=== PATIENT | female | born 1970 | race Caucasian/White ===

== ENCOUNTER 2017-12-27 11:34 | Inpatient (IN) | payer MEDICARE, MEDICAID ==
[~2017-12-27] VITALS: Ht 5943993 cm; Wt 63.6 kg
[2017-12-27 12:28] LABS: BASOPHILS % (AUTO) 0.8 % (0-1); EOSINOPHILS # (AUTO) 0.1 X10'3 (0-0.9); EOSINOPHILS % (AUTO) 1.8 % (0-6); HEMATOCRIT 44.6 % (35.0-45.0); HEMOGLOBIN 15.6 g/dl (12.0-16.0); LYMPHOCYTES # (AUTO) 1.5 X10'3 (1.1-4.8); LYMPHOCYTES % (AUTO) 30.9 % (21-51); MEAN CORPUSCULAR HEMOGLOBIN 32.1 PG (27.0-31.0); MEAN CORPUSCULAR VOLUME 91.8 FL (78-98); MEAN PLATELET VOLUME 8.1 FL (7.4-10.4); MONOCYTES # (AUTO) 0.3 X10'3 (0-0.9); MONOCYTES % (AUTO) 5.7 % (2-12); NEUTROPHILS % (AUTO) 60.8 % (42-75); PLATELET COUNT 88 X10'3 (140-440); RED BLOOD COUNT 4.85 X10'6 (4.20-5.60); RED CELL DISTRIBUTION WIDTH 12.6 % (11.5-14.5)
[2017-12-27 12:51] LABS: ALANINE AMINOTRANSFERASE 35 U/L (12-78); ALBUMIN 4.6 G/DL (3.4-5.0); ALBUMIN/GLOBULIN RATIO 1.3 (1.1-1.5); ALKALINE PHOSPHATASE 89 IU/L (46-116); ANION GAP 10 (8-16); ASPARTATE AMINO TRANSFERASE 32 U/L (10-37); BILIRUBIN,TOTAL 0.7 MG/DL (0.1-1.0); BLOOD UREA NITROGEN 8 MG/DL (7-18); BUN/CREATININE RATIO 8.3 (6.6-38.0); CALCIUM 9.1 MG/DL (8.5-10.1); CHLORIDE 102 MMOL/L (99-107); CREATININE 0.96 MG/DL (0.40-0.90); ETHANOL < 0.010 GM/DL (0.0-0.010); GLUCOSE 97 MG/DL (70-104); POTASSIUM 3.8 MMOL/L (3.5-5.1); SODIUM 140 MMOL/L (135-145); TOTAL CARBON DIOXIDE 27.7 MMOL/L (24-32); TOTAL PROTEIN 8.1 G/DL (6.4-8.2); eGFR 62 ML/MIN
[2017-12-27 13:33] LABS: LIPASE 1114 U/L (73-393)
[2017-12-27] MEDS ORDERED: TRAZ300T2 PO (13:52)
[2017-12-27] MEDS ORDERED: DESV100T4 PO (13:55)
[2017-12-27] MEDS ORDERED: MIRT7.5T11 PO (13:56)
[2017-12-27] MEDS ORDERED: ALPR-624 (13:57)
[2017-12-27] MEDS ORDERED: normal saline 1000ML IV soln IVB ONE (14:10)
[2017-12-27] MEDS ORDERED: ondansetron/PF 4mg/2ml inj IV ONE (14:10)
[2017-12-27 14:12] LABS: CLARITY,URINE Clear (Clear); COLOR,URINE Yellow (Yellow); GLUCOSE, URINE Negative (Neg); KETONES,URINE Trace mg/dl (Neg); LEUKOCYTE ESTERASE ,URINE Negative (Neg); NITRITES, URINE Negative (Neg); OCCULT BLOOD,URINE Negative (Neg); PH,URINE 5.5 (4.8-8.0); PROTEIN,URINE Negative (Neg); URINE HCG NEGATIVE (NEG); UROBILINOGEN,URINE 0.2 E.U/dL (0.2-1.0)
[2017-12-27 14:15] LABS: UA COLLECTION TYPE CLN CATCH MIDSTREAM
[2017-12-27 14:23] LABS: URINE AMPHETAMINE SCREEN NEGATIVE (Neg); URINE BARBITUATE SCREEN NEGATIVE (Neg); URINE BENZODIAZEPINES SCREEN POSITIVE (Neg); URINE CANNABINOID SCREEN POSITIVE (Neg); URINE COCAINE SCREEN NEGATIVE (Neg); URINE METHADONE SCREEN NEGATIVE (Neg); URINE OPIATE SCREEN NEGATIVE (Neg); URINE PHENCYCLIDINE SCREEN NEGATIVE (Neg)
[2017-12-27] MEDS ORDERED: mirtazapine 15mg tablet PO SCH (21:00)
[2017-12-27] MEDS ORDERED: traZODone 50mg tablet PO SCH (21:00)
[2017-12-27] MEDS: venlafaxine 25mg tablet PO SCH (21:27)
[2017-12-28 07:31] LABS: ALANINE AMINOTRANSFERASE 31 U/L (12-78); ALBUMIN/GLOBULIN RATIO 1.3 (1.1-1.5); ALKALINE PHOSPHATASE 76 IU/L (46-116); AMYLASE 95 U/L (25-115); ANION GAP 12 (8-16); ASPARTATE AMINO TRANSFERASE 26 U/L (10-37); BILIRUBIN,TOTAL 0.5 MG/DL (0.1-1.0); BLOOD UREA NITROGEN 9 MG/DL (7-18); BUN/CREATININE RATIO 10.1 (6.6-38.0); CALCIUM 8.7 MG/DL (8.5-10.1); CHLORIDE 106 MMOL/L (99-107); CREATININE 0.89 MG/DL (0.40-0.90); GLUCOSE 95 MG/DL (70-104); LIPASE 1195 U/L (73-393); MAGNESIUM 1.9 MG/DL (1.5-2.4); POTASSIUM 3.8 MMOL/L (3.5-5.1); SODIUM 143 MMOL/L (135-145); TOTAL CARBON DIOXIDE 25.1 MMOL/L (24-32); TOTAL PROTEIN 7.1 G/DL (6.4-8.2); eGFR 68 ML/MIN
[2017-12-28 07:43] LABS: ACETAMINOPHEN < 2.0 UG/ML (10-30)
[2017-12-28] MEDS ORDERED: HYDROcodone/acetaminophen 5mg/325mg tablet PO ONE (07:50)
[2017-12-28] MEDS: venlafaxine 25mg tablet PO SCH ×3 (09:12→20:10)
[2017-12-28] MEDS ORDERED: magnesium hydroxide 30ml (MOM) UD suspension PO PRN (11:30)
[2017-12-28] MEDS ORDERED: mag hydrox/Alum hydrox/simeth 30ml oral suspension PO PRN (11:30)
[2017-12-28] MEDS ORDERED: acetaminophen 325mg tablet PO PRN (11:30)
[2017-12-28] MEDS: potassium cl 20mEq in 1/2 NS 1,000 ML IV SCH ×2 (12:34→21:24)
[2017-12-28 15:36] LABS: TRIGLYCERIDES 105 MG/DL (20-135)
[2017-12-28] MEDS: mirtazapine 15mg tablet PO SCH (20:11)
[2017-12-28] MEDS: HYDROmorphone inj. 0.5 MG/0.5 ML DISP.SYRIN IV PRN (20:11)
[2017-12-28] MEDS ORDERED: non-formulary drug (Mirtazapine 1 TAB) PO SCH (21:00)
[2017-12-28] MEDS ORDERED: traZODone 150mg tablet PO SCH (21:00)
[2017-12-29] MEDS: ondansetron/PF 4mg/2ml inj IV PRN ×2 (05:32→17:08)
[2017-12-29] MEDS: potassium cl 20mEq in 1/2 NS 1,000 ML IV SCH ×2 (08:07→17:38)
[2017-12-29] MEDS: venlafaxine 25mg tablet PO SCH ×2 (08:27→13:14)
[2017-12-29] MEDS: HYDROmorphone inj. 0.5 MG/0.5 ML DISP.SYRIN IV PRN ×3 (09:05→19:31)
[2017-12-29] MEDS: mirtazapine 15mg tablet PO SCH (20:17)
[2017-12-29 23:09] VITALS: BP 92/64
== END 2017-12-29 23:30 | DRG 439 ==
LOC: ER 11:34 → ED HOLD 12-28 11:28
PROVIDERS: ADMIT Internal Medicine; ATTEND Internal Medicine
DX: K85.90 Acute pancreatitis without necrosis or infection, unspecified (principal); R45.851 Suicidal ideations; F31.30 Bipolar disorder, current episode depressed, mild or moderate severity, unspecified; F41.1 Generalized anxiety disorder; T43.215A Adverse effect of selective serotonin and norepinephrine reuptake inhibitors, initial encounter; T42.4X5A Adverse effect of benzodiazepines, initial encounter; Z90.49 Acquired absence of other specified parts of digestive tract; Z79.899 Other long term (current) drug therapy; Z98.51 Tubal ligation status; Z81.8 Family history of other mental and behavioral disorders; Y92.89 Other specified places as the place of occurrence of the external cause
CPT/HCPCS: 36415; 76700; 80053; 80305; 80320; 80329; 81003; 81025; 82150; 82607; 83690; 83735; 84443; 84478; 85025; 99285; J1170; J2405; J7030

== ENCOUNTER → 2017-12-28 09:09 | Inpatient (IN) | payer MEDICARE, MEDICAID ==
[~2017-12-28 09:09] MED LIST: ALPR-624; DESV100T4 PO; HYDR-3717 PO; LURA40TA3 PO; MIRT15TA8 PO; MIRT7.5T11 PO; TRAZ-143 PO; TRAZ300T2 PO; VENL225T3 PO
== END | disposition short-term general hospital (02) | DRG 881 ==
LOC: ADULT MH 09:09
PROVIDERS: ADMIT Psychiatry & Neurology Psychiatry; ATTEND Psychiatry & Neurology Psychiatry
DX: F32.9 Major depressive disorder, single episode, unspecified (principal)

== ENCOUNTER 2017-12-29 22:15 | Inpatient (IN) | payer MEDICARE, MEDICAID ==
[~2017-12-29] VITALS: Ht 152.4 cm; Wt 60.5 kg
[~2017-12-29 22:15] MED LIST changes: -HYDR-3717 PO; -LURA40TA3 PO; -MIRT15TA8 PO; -TRAZ-143 PO; -VENL225T3 PO
[2017-12-30 01:02] VITALS: BP 105/67
[2017-12-30] MEDS: acetaminophen 325mg tablet PO PRN ×2 (01:04→21:23)
[2017-12-30] MEDS: traZODone 50mg tablet PO PRN ×2 (01:04→21:23)
[2017-12-30] MEDS ORDERED: LORazepam 1 MG tablet PO PRN ×2 (04:40→18:10)
[2017-12-30 08:00] VITALS: BP 117/70
[2017-12-30 19:55] VITALS: BP 119/80
[2017-12-30] MEDS ORDERED: mirtazapine 15mg tablet PO SCH (21:00)
[2017-12-30] MEDS: mirtazapine 15mg tablet PO SCH (21:32)
[2017-12-31 08:00] VITALS: BP 104/67
[2017-12-31] MEDS ORDERED: non-formulary drug (invega 1.5 MG) PO SCH (08:00)
[2017-12-31] MEDS: venlafaxine XR 75mg capsule (Q24H) PO SCH (08:09)
[2017-12-31] MEDS: paliperidone 1.5mg ER tablet PO SCH (08:09)
[2017-12-31] MEDS ORDERED: LORazepam 1 MG tablet PO PRN (09:50)
[2017-12-31 19:55] VITALS: BP 123/82
[2017-12-31] MEDS: mirtazapine 15mg tablet PO SCH (22:14)
[2018-01-01 08:00] VITALS: BP 106/73
[2018-01-01] MEDS: venlafaxine XR 75mg capsule (Q24H) PO SCH (08:03)
[2018-01-01] MEDS: paliperidone 1.5mg ER tablet PO SCH (08:03)
[2018-01-01] MEDS ORDERED: non-formulary drug (invega 1.5 MG) PO ONE (08:15)
[2018-01-01] MEDS ORDERED: paliperidone 1.5mg ER tablet PO ONE (08:35)
[2018-01-01] MEDS: LORazepam 0.5 MG tablet PO PRN ×2 (12:31→20:28)
[2018-01-01 19:32] VITALS: BP 116/81
[2018-01-01] MEDS: mirtazapine 15mg tablet PO SCH (20:27)
[2018-01-02] MEDS: LORazepam 0.5 MG tablet PO PRN ×2 (07:09→16:57)
[2018-01-02 08:02] VITALS: BP 115/82
[2018-01-02] MEDS: PALIPERIDONE 3 MG TAB.ER.24 PO SCH (08:15)
[2018-01-02] MEDS: venlafaxine XR 75mg capsule (Q24H) PO SCH (08:15)
[2018-01-02] MEDS: hydrOXYzine 10 MG tablet PO PRN ×2 (12:02→20:15)
[2018-01-02 19:55] VITALS: BP 115/82
[2018-01-02] MEDS: mirtazapine 15mg tablet PO SCH (20:14)
[2018-01-03 08:09] VITALS: BP 107/73
[2018-01-03] MEDS: venlafaxine XR 75mg capsule (Q24H) PO SCH (08:23)
[2018-01-03] MEDS: PALIPERIDONE 3 MG TAB.ER.24 PO SCH (08:23)
[2018-01-03] MEDS: LORazepam 0.5 MG tablet PO PRN (16:26)
[2018-01-03 19:32] VITALS: BP 111/84
[2018-01-03] MEDS: traZODone 50mg tablet PO PRN (20:12)
[2018-01-03] MEDS: mirtazapine 15mg tablet PO SCH (20:12)
[2018-01-03] MEDS: acetaminophen 325mg tablet PO PRN (20:12)
[2018-01-03] MEDS: hydrOXYzine 10 MG tablet PO PRN (20:12)
[2018-01-04 07:55] VITALS: BP 109/76
[2018-01-04] MEDS: venlafaxine XR 75mg capsule (Q24H) PO SCH (09:43)
[2018-01-04] MEDS: LORazepam 0.5 MG tablet PO PRN (16:18)
[2018-01-04] MEDS ORDERED: lurasidone 20mg tablet PO SCH (18:00)
[2018-01-04] MEDS: acetaminophen 325mg tablet PO PRN (19:00)
[2018-01-04 19:17] VITALS: BP 117/79
[2018-01-04] MEDS: traZODone 50mg tablet PO PRN (20:24)
[2018-01-04] MEDS: mirtazapine 15mg tablet PO SCH (20:24)
[2018-01-04] MEDS: hydrOXYzine 10 MG tablet PO PRN (20:24)
[2018-01-05 07:50] VITALS: BP 106/72
[2018-01-05] MEDS ORDERED: venlafaxine XR 75mg capsule (Q24H) PO SCH (08:00)
[2018-01-05] MEDS: venlafaxine XR 75mg capsule (Q24H) PO SCH (09:04)
[2018-01-05] MEDS: LORazepam 0.5 MG tablet PO PRN ×2 (10:58→17:49)
[2018-01-05] MEDS ORDERED: magnesium hydroxide 30ml (MOM) UD suspension PO PRN (11:30)
[2018-01-05] MEDS: lurasidone 20mg tablet PO SCH (17:45)
[2018-01-05 19:31] VITALS: BP 93/64
[2018-01-05] MEDS: mirtazapine 15mg tablet PO SCH (21:17)
[2018-01-06 08:00] VITALS: BP 112/86
[2018-01-06] MEDS: venlafaxine XR 75mg capsule (Q24H) PO SCH (08:23)
[2018-01-06] MEDS: LORazepam 0.5 MG tablet PO PRN (12:00)
[2018-01-06] MEDS: lurasidone 20mg tablet PO SCH (17:35)
[2018-01-06] MEDS: mirtazapine 15mg tablet PO SCH (20:09)
[2018-01-06 20:32] VITALS: BP 118/76
[2018-01-07] MEDS: venlafaxine XR 75mg capsule (Q24H) PO SCH (07:04)
[2018-01-07 08:00] VITALS: BP 114/76
[2018-01-07] MEDS: LORazepam 0.5 MG tablet PO PRN (09:43)
[2018-01-07] MEDS ORDERED: TRAZ-143 PO (11:31)
[2018-01-07] MEDS ORDERED: VENL225T3 PO (11:31)
[2018-01-07] MEDS ORDERED: LURA40TA3 PO (11:31)
[2018-01-07] MEDS ORDERED: MIRT15TA8 PO (11:31)
[2018-01-07] MEDS ORDERED: HYDR-3717 PO (11:31)
== END 2018-01-07 13:25 | disposition home or self-care (01) | DRG 885 ==
LOC: ADULT MH 22:15
PROVIDERS: ADMIT Psychiatry & Neurology Psychiatry; ATTEND Psychiatry & Neurology Psychiatry
DX: F33.2 Major depressive disorder, recurrent severe without psychotic features (principal); R45.851 Suicidal ideations; F41.1 Generalized anxiety disorder; F43.10 Post-traumatic stress disorder, unspecified; F44.81 Dissociative identity disorder; F10.20 Alcohol dependence, uncomplicated; Z90.49 Acquired absence of other specified parts of digestive tract; Z98.51 Tubal ligation status; Z79.899 Other long term (current) drug therapy; Z81.1 Family history of alcohol abuse and dependence; Z81.8 Family history of other mental and behavioral disorders
CPT/HCPCS: 87070; 99406

== ENCOUNTER 2018-02-28 12:01 | Emergency (ER) | payer MEDICARE, MEDICAID ==
[~2018-02-28] VITALS: Ht 175.3 cm; Wt 63.6 kg
[~2018-02-28 12:01] MED LIST changes: -ALPR-624; -DESV100T4 PO; +HYDR-3717 PO; +LURA40TA3 PO; +MIRT15TA8 PO; -MIRT7.5T11 PO; +TRAZ-143 PO; -TRAZ300T2 PO; +VENL225T3 PO
[2018-02-28 12:07] VITALS: BP 134/92
[2018-02-28 13:19] LABS: CLARITY,URINE CLEAR (Clear); COLOR,URINE YELLOW (Yellow); GLUCOSE, URINE NEGATIVE (Neg); KETONES,URINE NEGATIVE (Neg); LEUKOCYTE ESTERASE ,URINE NEGATIVE (Neg); NITRITES, URINE NEGATIVE (Neg); OCCULT BLOOD,URINE NEGATIVE (Neg); PH,URINE 7.5 (4.8-8.0); PROTEIN,URINE NEGATIVE (Neg); UROBILINOGEN,URINE 0.2 E.U/dL (0.2-1.0)
[2018-02-28 13:20] LABS: URINE HCG NEGATIVE (NEG)
[2018-02-28 13:27] LABS: BASOPHILS % (AUTO) 0.5 % (0-1); EOSINOPHILS # (AUTO) 0.2 X10'3 (0-0.9); EOSINOPHILS % (AUTO) 2.5 % (0-6); HEMATOCRIT 42.5 % (35.0-45.0); HEMOGLOBIN 14.9 g/dl (12.0-16.0); LYMPHOCYTES # (AUTO) 1.7 X10'3 (1.1-4.8); LYMPHOCYTES % (AUTO) 24.9 % (21-51); MEAN CORPUSCULAR HEMOGLOBIN 32.1 PG (27.0-31.0); MEAN CORPUSCULAR HGB CONC 35.1 % (33.0-36.5); MEAN CORPUSCULAR VOLUME 91.3 FL (78-98); MONOCYTES # (AUTO) 0.5 X10'3 (0-0.9); MONOCYTES % (AUTO) 7.2 % (2-12); NEUTROPHILS # (AUTO) 4.3 X10'3 (1.8-7.7); NEUTROPHILS % (AUTO) 64.9 % (42-75); PLATELET COUNT 112 X10'3 (140-440); RED BLOOD COUNT 4.65 X10'6 (4.20-5.60); RED CELL DISTRIBUTION WIDTH 12.6 % (11.5-14.5); WHITE BLOOD COUNT 6.7 X10'3 (4.5-11.0)
[2018-02-28 13:27] LABS: UA COLLECTION TYPE CLN CATCH MIDSTREAM
[2018-02-28 13:31] LABS: URINE AMPHETAMINE SCREEN NEGATIVE (Neg); URINE BARBITUATE SCREEN NEGATIVE (Neg); URINE BENZODIAZEPINES SCREEN POSITIVE (Neg); URINE CANNABINOID SCREEN NEGATIVE (Neg); URINE COCAINE SCREEN NEGATIVE (Neg); URINE METHADONE SCREEN NEGATIVE (Neg); URINE OPIATE SCREEN NEGATIVE (Neg); URINE PHENCYCLIDINE SCREEN NEGATIVE (Neg)
[2018-02-28 13:57] LABS: ALANINE AMINOTRANSFERASE 64 U/L (12-78); ALBUMIN/GLOBULIN RATIO 1.1 (1.1-1.5); ALKALINE PHOSPHATASE 110 IU/L (46-116); ANION GAP 10 (8-16); ASPARTATE AMINO TRANSFERASE 47 U/L (10-37); BILIRUBIN,TOTAL 0.3 MG/DL (0.1-1.0); BLOOD UREA NITROGEN 10 MG/DL (7-18); BUN/CREATININE RATIO 9.6 (6.6-38.0); CHLORIDE 104 MMOL/L (99-107); CREATININE 1.04 MG/DL (0.40-0.90); ETHANOL < 0.010 GM/DL (0.0-0.010); GLUCOSE 105 MG/DL (70-104); POTASSIUM 3.9 MMOL/L (3.5-5.1); SODIUM 141 MMOL/L (135-145); TOTAL CARBON DIOXIDE 27.4 MMOL/L (24-32); TOTAL PROTEIN 7.6 G/DL (6.4-8.2); eGFR 57 ML/MIN
[2018-02-28 13:58] LABS: ACETAMINOPHEN < 2.0 UG/ML (10-30)
[2018-02-28] MEDS ORDERED: HYDR-3686 PO (14:33)
[2018-02-28] MEDS ORDERED: LURA40TA3 PO (14:40)
[2018-02-28] MEDS ORDERED: MIRT15TA8 PO (14:40)
[2018-02-28] MEDS ORDERED: VENL225T3 PO (14:43)
[2018-02-28] MEDS ORDERED: TRAZ-143 PO (14:43)
[2018-02-28] MEDS ORDERED: mirtazapine 15mg tablet PO PRN (15:05)
[2018-02-28] MEDS ORDERED: hydrOXYzine 25 MG tablet PO PRN (15:05)
[2018-02-28] MEDS ORDERED: traZODone 50mg tablet PO PRN (15:10)
[2018-02-28] MEDS ORDERED: HYDR-3717 PO (17:40)
[2018-02-28] MEDS ORDERED: lurasidone 20mg tablet PO SCH (21:00)
[2018-03-01] MEDS ORDERED: venlafaxine XR 75mg capsule (Q24H) PO SCH (08:00)
== END 2018-02-28 16:45 | disposition home or self-care (01) ==
LOC: ER 12:01
DX: R45.851 Suicidal ideations (principal); F41.9 Anxiety disorder, unspecified; F32.9 Major depressive disorder, single episode, unspecified; Z90.49 Acquired absence of other specified parts of digestive tract; Z56.0 Unemployment, unspecified; Z79.899 Other long term (current) drug therapy
CPT/HCPCS: 36415; 80053; 80305; 80320; 80329; 81003; 81025; 84443; 85025; 93005; 99285

== ENCOUNTER 2018-10-07 17:03 | Inpatient (IN) | payer MEDICARE, MEDICAID ==
[~2018-10-07] VITALS: Ht 165.1 cm; Wt 78.2 kg
[~2018-10-07 17:03] MED LIST changes: -LURA40TA3 PO; +LURA60TA2 PO; -TRAZ-143 PO; +TRAZ-218 PO; +VENL150T3 PO; -VENL225T3 PO
[2018-10-07] MEDS ORDERED: normal saline 1000ML IV soln IVB ONE (17:30)
[2018-10-07] MEDS ORDERED: morphine 4 MG/ML inj SYRINge IV ONE (17:30)
[2018-10-07] MEDS ORDERED: ondansetron/PF 4mg/2ml inj IV ONE (17:30)
[2018-10-07 17:48] LABS: ALANINE AMINOTRANSFERASE 70 U/L (12-78); ALBUMIN 4.3 G/DL (3.4-5.0); ALBUMIN/GLOBULIN RATIO 1.1 (1.1-1.5); ALKALINE PHOSPHATASE 127 IU/L (46-116); ANION GAP 12 (8-16); ASPARTATE AMINO TRANSFERASE 41 U/L (10-37); BILIRUBIN,TOTAL 0.3 MG/DL (0.1-1.0); BLOOD UREA NITROGEN 8 MG/DL (7-18); BUN/CREATININE RATIO 7.1 (6.6-38.0); CALCIUM 8.9 MG/DL (8.5-10.1); CHLORIDE 100 MMOL/L (99-107); CREATININE 1.13 MG/DL (0.40-0.90); GLUCOSE 105 MG/DL (70-104); LIPASE 1027 U/L (73-393); POTASSIUM 3.5 MMOL/L (3.5-5.1); SODIUM 137 MMOL/L (135-145); TOTAL CARBON DIOXIDE 25.1 MMOL/L (24-32); TOTAL PROTEIN 8.2 G/DL (6.4-8.2); eGFR 51 ML/MIN
[2018-10-07 17:52] LABS: CLARITY,URINE CLEAR (Clear); COLOR,URINE YELLOW (Yellow); GLUCOSE, URINE NEGATIVE (Neg); KETONES,URINE NEGATIVE (Neg); LEUKOCYTE ESTERASE ,URINE NEGATIVE (Neg); NITRITES, URINE NEGATIVE (Neg); OCCULT BLOOD,URINE NEGATIVE (Neg); PROTEIN,URINE NEGATIVE (Neg); UROBILINOGEN,URINE 0.2 E.U/dL (0.2-1.0)
[2018-10-07 17:53] LABS: UA COLLECTION TYPE CLN CATCH MIDSTREAM; URINE HCG NEGATIVE (NEG)
[2018-10-07 17:56] LABS: BASOPHILS % (AUTO) 0.3 % (0-1); EOSINOPHILS % (AUTO) 1.5 % (0-6); HEMATOCRIT 44.9 % (35.0-45.0); LYMPHOCYTES # (AUTO) 1.4 X10'3 (1.1-4.8); LYMPHOCYTES % (AUTO) 16.1 % (21-51); MEAN CORPUSCULAR HEMOGLOBIN 31.4 PG (27.0-31.0); MEAN CORPUSCULAR HGB CONC 33.5 % (33.0-36.5); MEAN CORPUSCULAR VOLUME 93.6 FL (78-98); MEAN PLATELET VOLUME 8.1 FL (7.4-10.4); MONOCYTES # (AUTO) 0.7 X10'3 (0-0.9); MONOCYTES % (AUTO) 8.4 % (2-12); NEUTROPHILS # (AUTO) 6.3 X10'3 (1.8-7.7); NEUTROPHILS % (AUTO) 73.7 % (42-75); PLATELET COUNT 101 X10'3 (140-440); RED BLOOD COUNT 4.79 X10'6 (4.20-5.60); RED CELL DISTRIBUTION WIDTH 12.6 % (11.5-14.5); WHITE BLOOD COUNT 8.6 X10'3 (4.5-11.0)
[2018-10-07 17:57] LABS: EOSINOPHILS # (AUTO) 0.1 X10'3 (0-0.9)
[2018-10-07] MEDS ORDERED: [UNRECOGNIZED DRUG - CODE] PO (18:47)
[2018-10-07] MEDS ORDERED: acetaminophen 325mg tablet PO PRN (19:30)
[2018-10-07] MEDS ORDERED: CADD PCA waste documentation MC PRN (19:30)
[2018-10-07] MEDS ORDERED: ondansetron/PF 4mg/2ml inj IV PRN (19:30)
[2018-10-07] MEDS ORDERED: naloxone 0.4 mg/ml inj IV PRN (19:30)
[2018-10-07 20:45] VITALS: BP 113/79
[2018-10-07] MEDS: normal saline 1000ml 1,000 ML IV SCH (20:53)
[2018-10-07] MEDS: morphine/NS 5 mg/ml CADD 50 ML IV SCH ×3 (21:00→23:00)
[2018-10-07] MEDS: traZODone 50mg tablet PO PRN (22:55)
[2018-10-07] MEDS: lurasidone 60mg tablet PO SCH (22:55)
[2018-10-07] MEDS: heparin, porcine 5000 units/ml vial SQ SCH (22:55)
[2018-10-07] MEDS: ALPRAZolam 0.5mg tablet PO SCH (22:56)
[2018-10-07] MEDS: mirtazapine 15mg tablet PO SCH (22:56)
[2018-10-07] MEDS: venlafaxine XR 75mg capsule (Q24H) PO SCH (22:57)
[2018-10-07 23:00] VITALS: BP 105/71
[2018-10-08] MEDS: morphine/NS 5 mg/ml CADD 50 ML IV SCH ×12 (00:42→23:00)
[2018-10-08] MEDS: normal saline 1000ml 1,000 ML IV SCH ×3 (04:24→23:45)
[2018-10-08 04:52] LABS: BASOPHILS % (AUTO) 0.7 % (0-1); EOSINOPHILS # (AUTO) 0.3 X10'3 (0-0.9); EOSINOPHILS % (AUTO) 3.8 % (0-6); HEMATOCRIT 39.3 % (35.0-45.0); HEMOGLOBIN 13.1 g/dl (12.0-16.0); LYMPHOCYTES # (AUTO) 2.6 X10'3 (1.1-4.8); LYMPHOCYTES % (AUTO) 37.1 % (21-51); MEAN CORPUSCULAR HEMOGLOBIN 31.2 PG (27.0-31.0); MEAN CORPUSCULAR HGB CONC 33.2 % (33.0-36.5); MEAN CORPUSCULAR VOLUME 93.8 FL (78-98); MEAN PLATELET VOLUME 7.8 FL (7.4-10.4); MONOCYTES # (AUTO) 0.6 X10'3 (0-0.9); MONOCYTES % (AUTO) 8.2 % (2-12); NEUTROPHILS # (AUTO) 3.5 X10'3 (1.8-7.7); NEUTROPHILS % (AUTO) 50.2 % (42-75); PLATELET COUNT 78 X10'3 (140-440); RED BLOOD COUNT 4.18 X10'6 (4.20-5.60); WHITE BLOOD COUNT 6.9 X10'3 (4.5-11.0)
[2018-10-08 05:12] LABS: ALANINE AMINOTRANSFERASE 56 U/L (12-78); ALBUMIN 3.2 G/DL (3.4-5.0); ALBUMIN/GLOBULIN RATIO 1.1 (1.1-1.5); ALKALINE PHOSPHATASE 100 IU/L (46-116); ANION GAP 8 (8-16); ASPARTATE AMINO TRANSFERASE 40 U/L (10-37); BILIRUBIN,TOTAL 0.5 MG/DL (0.1-1.0); BLOOD UREA NITROGEN 6 MG/DL (7-18); BUN/CREATININE RATIO 6.3 (6.6-38.0); CALCIUM 7.8 MG/DL (8.5-10.1); CHLORIDE 107 MMOL/L (99-107); CREATININE 0.95 MG/DL (0.40-0.90); GLUCOSE 88 MG/DL (70-104); POTASSIUM 3.8 MMOL/L (3.5-5.1); SODIUM 141 MMOL/L (135-145); TOTAL CARBON DIOXIDE 26.3 MMOL/L (24-32); TOTAL PROTEIN 6.1 G/DL (6.4-8.2); eGFR 63 ML/MIN
[2018-10-08 07:00] VITALS: BP 102/63
[2018-10-08] MEDS ORDERED: venlafaxine XR 75mg capsule (Q24H) PO SCH (08:00)
[2018-10-08] MEDS: heparin, porcine 5000 units/ml vial SQ SCH ×2 (08:00→21:41)
[2018-10-08] MEDS ORDERED: ALPRAZolam 0.5mg tablet PO SCH (08:00)
[2018-10-08 11:00] VITALS: BP 97/65
[2018-10-08] MEDS ORDERED: lurasidone 60mg tablet PO SCH (17:00)
[2018-10-08] MEDS: lurasidone 60mg tablet PO SCH (17:26)
[2018-10-08 20:00] VITALS: BP 109/74
[2018-10-08] MEDS: traZODone 50mg tablet PO PRN (21:40)
[2018-10-08] MEDS: venlafaxine XR 75mg capsule (Q24H) PO SCH (21:40)
[2018-10-08] MEDS: mirtazapine 15mg tablet PO SCH (21:40)
[2018-10-08] MEDS: ALPRAZolam 0.5mg tablet PO SCH (21:40)
[2018-10-09] VITALS: BP 88/54
[2018-10-09] MEDS: morphine/NS 5 mg/ml CADD 50 ML IV SCH ×3 (01:00→05:00)
[2018-10-09 05:27] LABS: BASOPHILS % (AUTO) 0.8 % (0-1); EOSINOPHILS # (AUTO) 0.2 X10'3 (0-0.9); EOSINOPHILS % (AUTO) 4.4 % (0-6); HEMATOCRIT 36.9 % (35.0-45.0); HEMOGLOBIN 12.6 g/dl (12.0-16.0); LYMPHOCYTES # (AUTO) 1.8 X10'3 (1.1-4.8); LYMPHOCYTES % (AUTO) 41.3 % (21-51); MEAN CORPUSCULAR HEMOGLOBIN 31.7 PG (27.0-31.0); MEAN CORPUSCULAR HGB CONC 34.1 % (33.0-36.5); MEAN CORPUSCULAR VOLUME 93.2 FL (78-98); MEAN PLATELET VOLUME 7.8 FL (7.4-10.4); MONOCYTES # (AUTO) 0.5 X10'3 (0-0.9); MONOCYTES % (AUTO) 11.4 % (2-12); NEUTROPHILS # (AUTO) 1.8 X10'3 (1.8-7.7); NEUTROPHILS % (AUTO) 42.1 % (42-75); PLATELET COUNT 65 X10'3 (140-440); RED BLOOD COUNT 3.96 X10'6 (4.20-5.60); RED CELL DISTRIBUTION WIDTH 12.6 % (11.5-14.5); WHITE BLOOD COUNT 4.3 X10'3 (4.5-11.0)
[2018-10-09 05:48] LABS: ALANINE AMINOTRANSFERASE 66 U/L (12-78); ALBUMIN 3.1 G/DL (3.4-5.0); ALBUMIN/GLOBULIN RATIO 1.1 (1.1-1.5); ALKALINE PHOSPHATASE 108 IU/L (46-116); ANION GAP 7 (8-16); ASPARTATE AMINO TRANSFERASE 57 U/L (10-37); BILIRUBIN,TOTAL 0.5 MG/DL (0.1-1.0); BLOOD UREA NITROGEN 4 MG/DL (7-18); BUN/CREATININE RATIO 4.2 (6.6-38.0); CALCIUM 8.2 MG/DL (8.5-10.1); CHLORIDE 107 MMOL/L (99-107); CREATININE 0.95 MG/DL (0.40-0.90); GLUCOSE 75 MG/DL (70-104); SODIUM 141 MMOL/L (135-145); TOTAL CARBON DIOXIDE 26.8 MMOL/L (24-32); TOTAL PROTEIN 5.9 G/DL (6.4-8.2); eGFR 63 ML/MIN
[2018-10-09] MEDS: heparin, porcine 5000 units/ml vial SQ SCH (06:59)
[2018-10-09 07:30] VITALS: BP 121/76
[2018-10-09] MEDS: normal saline 1000ml 1,000 ML IV SCH (08:58)
[2018-10-09] MEDS ORDERED: morphine 2 MG/ML inj. syringe IV PRN (09:35)
[2018-10-09] MEDS ORDERED: magnesium hydroxide 30ml (MOM) UD suspension PO PRN (09:35)
[2018-10-09] MEDS ORDERED: acetaminophen 325mg tablet PO PRN (09:35)
[2018-10-09] MEDS: HYDROcodone/acetaminophen 5mg/325mg tablet PO PRN ×2 (10:39→16:41)
[2018-10-09 11:02] VITALS: BP 120/79
== END 2018-10-09 16:55 | disposition home or self-care (01) | DRG 440 ==
LOC: ER 17:04 → ED HOLD 19:27 → SUR 3N 20:40 → CMPBEDREQ 21:18
PROVIDERS: ADMIT Internal Medicine; ATTEND Hospitalist
DX: K85.20 Alcohol induced acute pancreatitis without necrosis or infection (principal); F10.20 Alcohol dependence, uncomplicated; D69.6 Thrombocytopenia, unspecified; K86.0 Alcohol-induced chronic pancreatitis; F17.210 Nicotine dependence, cigarettes, uncomplicated; R74.8 Abnormal levels of other serum enzymes; F31.9 Bipolar disorder, unspecified; F41.9 Anxiety disorder, unspecified; Z90.49 Acquired absence of other specified parts of digestive tract; Z79.899 Other long term (current) drug therapy; Z81.8 Family history of other mental and behavioral disorders; Z82.49 Family history of ischemic heart disease and other diseases of the circulatory system; Z71.41 Alcohol abuse counseling and surveillance of alcoholic
CPT/HCPCS: 36415; 80053; 81003; 81025; 83690; 85025; 85610; 87070; 96361; 96374; 96375; 99285; G0378; J1644; J2270; J2405; J7030

== ENCOUNTER 2019-02-25 19:51 | Inpatient (IN) | payer MEDICARE, MEDICAID ==
[~2019-02-25] VITALS: Ht 165.1 cm; Wt 79.6 kg
[~2019-02-25 19:51] MED LIST changes: -HYDR-3717 PO; -TRAZ-218 PO; +TRAZ-251 PO; +[UNRECOGNIZED DRUG - CODE] PO; +lurasidone 20mg tablet PO SCH
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
[2019-02-25] MEDS ORDERED: magnesium hydroxide 30ml (MOM) UD suspension PO PRN (20:40)
[2019-02-25] MEDS ORDERED: mag hydrox/Alum hydrox/simeth 30ml oral suspension PO PRN (20:40)
[2019-02-25] MEDS ORDERED: acetaminophen 325mg tablet PO PRN ×2 (20:40)
[2019-02-25] MEDS ORDERED: loperamide 2mg capsule PO PRN (20:40)
[2019-02-25] MEDS ORDERED: lurasidone 20mg tablet PO SCH (21:00)
[2019-02-25] MEDS ORDERED: tuberculin, purif. prot. deriv. 5 units/0.1ml ID ONE (21:37)
[2019-02-25 21:45] VITALS: BP 126/97
[2019-02-25] MEDS ORDERED: TRAZ-251 PO (22:08)
[2019-02-25] MEDS ORDERED: LURA60TA2 PO (22:08)
[2019-02-25] MEDS ORDERED: ALPR1TAB2 PO (22:08)
[2019-02-25] MEDS ORDERED: MIRT15TA PO (22:08)
[2019-02-25] MEDS ORDERED: VENL150C2 PO (22:08)
[2019-02-25] MEDS ORDERED: ALPR-624 PO (22:08)
[2019-02-25 22:23] VITALS: BP 126/97
[2019-02-25] MEDS ORDERED: ALPRAZolam 0.5mg tablet PO PRN (23:00)
[2019-02-25] MEDS: ALPRAZolam 0.5mg tablet PO SCH (23:25)
[2019-02-25] MEDS: traZODone 50mg tablet PO SCH (23:25)
[2019-02-25] MEDS: mirtazapine 15mg tablet PO SCH (23:25)
[2019-02-26 07:13] LABS: CHOL/HDL RATIO 2.9 (0.00-4.99); CHOLESTEROL 201 MG/DL (0-200); HDL CHOLESTEROL 69 MG/DL (35-60); LDL CHOLESTEROL 114 MG/DL (50-100); TRIGLYCERIDES 138 MG/DL (20-135)
[2019-02-26 07:26] LABS: HEMOGLOBIN A1C 5.2 % (4.5-6.2)
[2019-02-26] MEDS: venlafaxine XR 75mg capsule (Q24H) PO SCH (08:04)
[2019-02-26 09:13] VITALS: BP 130/93
--- NOTE | 2019-02-26 15:57 | NUR ---
Nursing Progress Note: Legal hold: 5150 DTS Report received from nurse with use of SBAR: DELANEY Guerra Why are they here: The patient is a 48 year old female who self presented to [facility] ER from her home in [place]. She reported that she was suicidal with a plan to take an over dose of medications. She was seen by [facility] and placed on a 5150 for being a danger to herself. Assessment What has happened this shift: Patient is observed resting at change of shift. She awakens easily to take her morning medications. She joins others in the group room for breakfast and then returns to bed to sleep. She does not attend group. She is observed resting in her room and reading throughout the day. Her demeanor is calm and friendly. She states that she is feeling better today and currently denies S/I. She reports that she is just feeling very tired and thankful to be able to rest. S/I, H/I: none reported A/VH: none reported Sleep: 6hrs NOC, rested during the day ADL's: independent Group attendance: no Were meds taken: Yes Any med S/E: None reported, no IMs or tremors observed Mental Status Exam Appearance: appropriate Eye contact: Good Behavior: Cooperative and friendly Speech: Soft tone, normal rate and rhythm Mood: sad Affect: not expressive Thought process: linear Thought Content: just tired right now Cognition: A&O X4 Insight: Fair Judgment: Fair Interventions PRN's used: none Therapeutic interventions: 1:1 therapeutic assessment, maintained safe therapeutic milieu, encouraged independent ADLs, provided active listening with positive feedback, provided medication education as needed, monitored for change in behavior and needed intervention. Q 15 min safety checks. Restraints/seclusion/emergency medication: N/A Justification of Continued Inpatient Treatment: Continued therapeutic support and medication management needed to provide stabilization, and prevent decompensation decreasing risk to patient for readmittance to in-patient unit.
[2019-02-26] MEDS: lurasidone 20mg tablet PO SCH (17:56)
[2019-02-26 19:52] VITALS: BP 129/87
[2019-02-26] MEDS: traZODone 50mg tablet PO SCH (20:29)
[2019-02-26] MEDS: mirtazapine 15mg tablet PO SCH (20:29)
[2019-02-26] MEDS: ALPRAZolam 0.5mg tablet PO SCH (20:30)
--- NOTE | 2019-02-27 01:11 | NUR ---
Nursing Progress Note: Legal hold: 5150 DTS Report received from nurse with use of SBAR: DELANEY Ashby Why are they here: The patient is a 48 year old female who self presented to [facility] from her home in [place]. She reported that she was suicidal with a plan to take an over dose of medications. She was seen by [facility] and placed on a 5150 for being a danger to herself. Assessment What has happened this shift: Patient is observed in her bed reading at change of shift. She is cooperative for a 1:1 assessment. She denies SI stating "Not currently" when asked. She states her depression is a 6/10 and she feels better today after being on the unit than she has prior days. She denies HI, AH, VH. She is noted to keep to herself and spend her time in her room sleeping. She takes her HS medications without event. S/I, H/I: SI: "Not currently" Denies HI A/VH: Denies Sleep: Currently sleeping, see sleep assessment ADL's: Independent Group attendance: No Were meds taken: Yes Any med S/E: None reported Mental Status Exam Appearance: WNL, well groomed Eye contact: Good Behavior: Cooperative Speech: Soft tone, normal rate and rhythm Mood: Depressed Affect: Congruent to mood Thought process: Linear Thought Content: Getting better Cognition: A&O X4 Insight: Poor Judgment: Poor Interventions PRN's used: None Therapeutic interventions: 1:1 therapeutic assessment, maintained safe therapeutic milieu, encouraged independent ADLs, provided active listening with positive feedback, provided medication education as needed, monitored for change in behavior and needed intervention. Q 15 min safety checks. Restraints/seclusion/emergency medication: N/A Justification of Continued Inpatient Treatment: Continued therapeutic support and medication management needed to provide stabilization, and prevent decompensation decreasing risk to patient for readmittance to in-patient unit.
[2019-02-27 08:05] VITALS: BP 115/94
[2019-02-27] MEDS: venlafaxine XR 75mg capsule (Q24H) PO SCH (08:06)
--- NOTE | 2019-02-27 16:11 | NUR ---
Nursing Progress Note: Legal hold: 5150 DTS Report received from nurse with use of SBAR: DELANEY Posada Why are they here: The patient is a 48 year old female who self presented to [facility] from her home in [place]. She reported that she was suicidal with a plan to take an over dose of medications. She was seen by [facility] and placed on a 5150 for being a danger to herself. Assessment What has happened this shift: Patient is observed resting at change of shift. She awakens easily and joins others for breakfast. She takes her medications without any issue. She states that she slept well lastnight. She denies S/I and states that the sadness comes and goes thorughout the day. She spends most of the day reading and reports the story is enjoyable. S/I, H/I: none reported A/VH: none reported Sleep: 7.5hrs NOC, rested during the day ADL's: independant Group attendance: no Were meds taken: Yes Any med S/E: None reported, no IMs or tremors observed Mental Status Exam Appearance: appropriate Eye contact: direct Behavior: Cooperative and friendly Speech: Soft tone, normal rate and rhythm Mood: sad Affect: flat Thought process: linear Thought Content: tired Cognition: A&O X4 Insight: Fair Judgment: Fair Interventions PRN's used: none Therapeutic interventions: 1:1 therapeutic assessment, maintained safe therapeutic milieu, encouraged independent ADLs, provided active listening with positive feedback, provided medication education as needed, monitored for change in behavior and needed intervention. Q 15 min safety checks. Restraints/seclusion/emergency medication: N/A Justification of Continued Inpatient Treatment: Continued therapeutic support and medication management needed to provide stabilization, and prevent decompensation decreasing risk to patient for readmittance to in-patient unit.
[2019-02-27] MEDS: lurasidone 20mg tablet PO SCH (17:50)
[2019-02-27 20:00] VITALS: BP 122/80
[2019-02-27] MEDS ORDERED: ALPRAZolam 0.5mg tablet PO SCH (21:00)
[2019-02-27] MEDS: traZODone 50mg tablet PO SCH (21:22)
[2019-02-27] MEDS: mirtazapine 15mg tablet PO SCH (21:23)
[2019-02-27] MEDS: ALPRAZolam 0.5mg tablet PO SCH (21:23)
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
[2019-02-28] MEDS: venlafaxine XR 75mg capsule (Q24H) PO SCH (07:33)
[2019-02-28 08:00] VITALS: BP 123/77
[2019-02-28] MEDS: hydrOXYzine 25 MG tablet PO PRN (09:47)
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
[2019-02-28] MEDS: lurasidone 20mg tablet PO SCH (17:56)
[2019-02-28 20:00] VITALS: BP 136/95
[2019-02-28] MEDS: traZODone 50mg tablet PO SCH (20:39)
[2019-02-28] MEDS: mirtazapine 15mg tablet PO SCH (20:39)
[2019-02-28] MEDS: ALPRAZolam 0.5mg tablet PO SCH (20:40)
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
[2019-03-01] MEDS: hydrOXYzine 25 MG tablet PO PRN ×2 (06:18→13:52)
[2019-03-01 07:00] VITALS: BP 151/106
[2019-03-01] MEDS: venlafaxine XR 75mg capsule (Q24H) PO SCH (08:21)
--- NOTE | 2019-03-01 11:13 | NUR ---
Initial: Pt admit to [facility] with major depression disorder. Noted that pt with -7.2 kg, likely false charting d/t it occurring in the same day. Pt currently on a regular diet with documented 75-100% PO intake likely meeting nutrient needs. LB 02/27. No edema or wounds. No nutrition diagnosis at this time. Will continue to follow. Recommendations: 1) Continue regular diet 2) Weekly wt Addendum: 03/01/19 at [address] Amended: Links added.
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
[2019-03-01] MEDS: lurasidone 20mg tablet PO SCH (17:59)
[2019-03-01 19:55] VITALS: BP 125/77
[2019-03-01] MEDS: mirtazapine 15mg tablet PO SCH (20:15)
[2019-03-01] MEDS: ALPRAZolam 0.5mg tablet PO SCH (20:15)
[2019-03-01] MEDS: traZODone 50mg tablet PO SCH (20:15)
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
[2019-03-02] MEDS: venlafaxine XR 75mg capsule (Q24H) PO SCH (07:54)
[2019-03-02 08:12] VITALS: BP 111/72
[2019-03-02] MEDS: hydrOXYzine 25 MG tablet PO PRN ×2 (09:30→19:15)
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
[2019-03-02] MEDS: lurasidone 20mg tablet PO SCH (17:44)
[2019-03-02] MEDS: traZODone 50mg tablet PO SCH (20:13)
[2019-03-02] MEDS: mirtazapine 15mg tablet PO SCH (20:13)
[2019-03-02] MEDS: ALPRAZolam 0.5mg tablet PO SCH (20:13)
[2019-03-02 20:15] VITALS: BP 128/88
[2019-03-02] MEDS: prazosin 1mg capsule PO SCH (21:06)
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
[2019-03-03 07:30] VITALS: BP 116/85
[2019-03-03] MEDS: venlafaxine XR 75mg capsule (Q24H) PO SCH (07:39)
[2019-03-03] MEDS: hydrOXYzine 25 MG tablet PO PRN (11:42)
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
[2019-03-03] MEDS: lurasidone 20mg tablet PO SCH (18:06)
[2019-03-03 20:00] VITALS: BP 130/87
[2019-03-03] MEDS: traZODone 50mg tablet PO SCH (20:26)
[2019-03-03] MEDS: prazosin 1mg capsule PO SCH (20:26)
[2019-03-03] MEDS: ALPRAZolam 0.5mg tablet PO SCH (20:26)
[2019-03-03] MEDS: mirtazapine 15mg tablet PO SCH (20:27)
--- NOTE | 2019-03-04 00:49 | NUR ---
Nursing Progress Note: Legal hold:5250 Client on voluntary/involuntary status for being a danger to herself Report received from nurse with use of SBAR: Isma Castro RN Why are they here: The patient self presented to the ER after she drove herself here from [place], [place] because she had been feeling suicidal with a plan to overdose on her prescription meds as well as medications that belonged to her boyfriend. She also had been abusing alcohol. The patient was medically cleared in the ER and placed on a 5150 hold for being a danger to herself. Assessment What has happened this shift:The patient was up on the unit and made some telephone calls. She appeared appropriately dressed and well groomed. She was friendly and pleasant when approached for the evening assessment. When asked about her mood she replied that "I don't know. I've been going back and forth with my depression. I have a good day then I crash" She stated that her anxiety has been higher today because she felt that there had been a lot going on on the unit and then she started explaining that she did not go to her court hearing because she really did not want to contest it. She denied being suicidal. She denied having thoughts to harm others. She denies any kind of psychotic symptoms and none were evident during the evening assessment. She reports that she has been having nightmares at night. S/I, H/I:Denies A/VH: Denies Sleep: complains of nightmares ADL's: Independent last shower 03/02 Group attendance: No PM group held Were meds taken: The patient is medication compliant Any med S/E: The patient denies medication side effects Mental Status Exam Appearance: Appears stated age, adequately groomed Eye contact: good Behavior: mildly withdrawn, quiet, pleasant, cooperative Speech: Spontaneous, linear, logical Mood: Depressed, anxious Affect: WNL Thought process: Alert, logical, goal oriented Thought Content: depressed. Talked about having nightmares and is aware of medication adjustments Cognition: Alert, oriented Insight: impaired Judgment: Impaired Interventions PRN's used: none Therapeutic interventions: One to one with the patient to assess severity of depressive symptoms and self harm risk. Educated to current medications. The patient remains on q 15 minute safety checks Restraints/seclusion/emergency medication: None Justification of Continued Inpatient Treatment: The patient is reporting that her moods are unstable.
[2019-03-04 07:39] VITALS: BP 113/78
[2019-03-04] MEDS: venlafaxine XR 75mg capsule (Q24H) PO SCH (07:45)
--- NOTE | 2019-03-04 17:00 | NUR ---
Nursing Progress Note: Legal hold:5250 Client on voluntary/involuntary status for being a danger to herself Report received from nurse with use of SBAR: Isma Castro RN Why are they here: The patient self presented to the ER after she drove herself here from [place], [place] because she had been feeling suicidal with a plan to overdose on her prescription meds as well as medications that belonged to her boyfriend. She also had been abusing alcohol. The patient was medically cleared in the ER and placed on a 5150 hold for being a danger to herself. Assessment What has happened this shift: Pt. reports she had nightmares last night. contineues to report depression but says her anxiety is better today. Pt. did not take any PRN Atarax today. Pt. eating meals and taking medications. Pt.'s Latuda to increase to 80mg for tonight. Pt.'s Minipress increased to 2mg for tonight. Pt. did not attend groups today. Pt. pacing less today, but more isolative, found laying in bed frequently. S/I, H/I:Denies A/VH: Denies Sleep: Pt. reports poor sleep due to nightmares. ADL's: Independent last shower 03/02 Group attendance: No Were meds taken: The patient is medication compliant Any med S/E: The patient denies medication side effects Mental Status Exam Appearance: Appears stated age, adequately groomed Eye contact: good Behavior: mildly withdrawn, quiet, pleasant, cooperative Speech: Spontaneous, linear, logical Mood: Depressed, anxious Affect: depressed Thought process: Alert, logical, goal oriented Thought Content: depressed Cognition: Alert, oriented Insight: impaired Judgment: Impaired Interventions PRN's used: none Therapeutic interventions: One to one with the patient to assess severity of depressive symptoms and self harm risk. Educated to current medications. The patient remains on q 15 minute safety checks Restraints/seclusion/emergency medication: None Justification of Continued Inpatient Treatment: The patient is reporting that her moods are unstable.
[2019-03-04] MEDS: lurasidone 20mg tablet PO SCH (18:10)
[2019-03-04 19:42] VITALS: BP 113/80
[2019-03-04] MEDS: prazosin 1mg capsule PO SCH (20:44)
[2019-03-04] MEDS: mirtazapine 15mg tablet PO SCH (20:44)
[2019-03-04] MEDS: ALPRAZolam 0.5mg tablet PO SCH (20:45)
[2019-03-04] MEDS: traZODone 50mg tablet PO SCH (20:45)
--- NOTE | 2019-03-05 01:05 | NUR ---
Nursing Progress Note: Legal hold: 5250 Client on involuntary status for being a danger to herself. Report received from nurse with use of SBAR: DELANEY Peter Why are they here: The patient self-presented to the ER after she drove herself here from [place], [place] because she had been feeling suicidal with a plan to overdose on her prescription meds as well as medications that belonged to her boyfriend. She also had been abusing alcohol. The patient was medically cleared in the ER and placed on a 5150 hold for being a danger to herself. Assessment What has happened this shift: Patient is in bed in her room at the change of shift. She is in bed reading a book. She is cooperative for a 1:1 assessment at her bedside. She states that she slept most of the day and was tired. States she feel Good, rested now. Expresses that she has continuing anxiety and depression. However there has been improvement since being on then it. Patient remains to herself this evening. She is compliant with evening medications and takes HS medications without event. S/I, H/I: Denies A/VH: Denies Sleep: Currently sleeping, see sleep assessment ADL's: Independent Group attendance: None this shift Were meds taken: Yes Any med S/E: None reported Mental Status Exam Appearance: WNL, well groomed Eye contact: Good Behavior: Keeps to herself, isolative to her room, spends her time reading in bed Speech: Normal volume, rate and rhythm Mood: Depressed, anxious Affect: Congruent to mood Thought process: Linear, goal oriented Thought Content: Depressed Cognition: Alert, oriented Insight: Fair Judgment: Fair Interventions PRN's used: none Restraints/seclusion/emergency medication: None Therapeutic interventions: 1:1 therapeutic assessment, maintained safe therapeutic milieu, encouraged independent ADLs, provided active listening with positive feedback, provided medication education as needed, monitored for change in behavior and needed intervention. Q 15 min safety checks. Justification of Continued Inpatient Treatment: The patient is reporting that her moods are unstable.
[2019-03-05 08:00] VITALS: BP 108/77
[2019-03-05] MEDS ORDERED: venlafaxine XR 75mg capsule (Q24H) PO SCH (08:00)
[2019-03-05 10:41] LABS: BASOPHILS % (AUTO) 0.9 % (0-1); EOSINOPHILS # (AUTO) 0.1 X10'3 (0-0.9); EOSINOPHILS % (AUTO) 2.8 % (0-6); HEMATOCRIT 40.3 % (35.0-45.0); HEMOGLOBIN 13.9 g/dl (12.0-16.0); LYMPHOCYTES # (AUTO) 1.8 X10'3 (1.1-4.8); LYMPHOCYTES % (AUTO) 34.3 % (21-51); MEAN CORPUSCULAR HEMOGLOBIN 31.8 PG (27.0-31.0); MEAN CORPUSCULAR HGB CONC 34.5 g/dL (33.0-36.5); MEAN CORPUSCULAR VOLUME 92.1 FL (78-98); MEAN PLATELET VOLUME 8.3 FL (7.4-10.4); MONOCYTES # (AUTO) 0.6 X10'3 (0-0.9); MONOCYTES % (AUTO) 11.3 % (2-12); NEUTROPHILS # (AUTO) 2.6 X10'3 (1.8-7.7); NEUTROPHILS % (AUTO) 50.7 % (42-75); PLATELET COUNT 86 X10'3 (140-440); RED BLOOD COUNT 4.37 X10'6 (4.20-5.60); RED CELL DISTRIBUTION WIDTH 12.7 % (11.5-14.5); WHITE BLOOD COUNT 5.1 X10'3 (4.5-11.0)
[2019-03-05 11:02] LABS: ALANINE AMINOTRANSFERASE 43 U/L (12-78); ALBUMIN 3.4 G/DL (3.4-5.0); ALKALINE PHOSPHATASE 118 IU/L (46-116); ANION GAP 4 (8-16); ASPARTATE AMINO TRANSFERASE 27 U/L (10-37); BILIRUBIN,TOTAL 0.2 MG/DL (0.1-1.0); BLOOD UREA NITROGEN 13 MG/DL (7-18); BUN/CREATININE RATIO 10.7 (6.6-38.0); CALCIUM 8.9 MG/DL (8.5-10.1); CHLORIDE 107 MMOL/L (99-107); CREATININE 1.22 MG/DL (0.40-0.90); GLUCOSE 87 MG/DL (70-104); POTASSIUM 4.4 MMOL/L (3.5-5.1); SODIUM 142 MMOL/L (135-145); TOTAL CARBON DIOXIDE 31.2 MMOL/L (24-32); TOTAL PROTEIN 6.8 G/DL (6.4-8.2); eGFR 47 ML/MIN
--- NOTE | 2019-03-05 16:26 | NUR ---
Nursing Progress Note: Legal hold: 5250 DTS Report received from nurse with use of SBAR: DELANEY Posada Why are they here: The patient is a 48 year old female who self presented to [facility] ER from her home in [place]. She reported that she was suicidal with a plan to take an over dose of medications. She was seen by [facility] and placed on a 5150 for being a danger to herself. Assessment What has happened this shift: Patient is observed resting at change of shift. She awakens easily for vitals and medications. Medication changes are discussed with patient and she denies any questions. She states that slept well last night. She reports that she feels better, still depressed but denies S/I. Patient joins others for breakfast in the group room and after returns to her bed to rest. She does not get up for morning group. She goes into the group room for afternoon group and stays after to work on Ker[employer]. She denies any needs. S/I, H/I: denies A/VH: none reported Sleep: 8hrs NOC, rested during the day ADL's: Independent Group attendance: yes, afternoon Were meds taken: Yes Any med S/E: None reported, no IMs or tremors observed Mental Status Exam Appearance: appropriate Eye contact: direct Behavior: Cooperative and friendly Speech: Soft tone, normal rate and rhythm Mood: reports depression Affect: flat Thought process: linear Thought Content: tired Cognition: A&O X4 Insight: Fair Judgment: Fair Interventions PRN's used: none Therapeutic interventions: 1:1 therapeutic assessment, maintained safe therapeutic milieu, encouraged independent ADLs, provided active listening with positive feedback, provided medication education as needed, monitored for change in behavior and needed intervention. Q 15 min safety checks. Restraints/seclusion/emergency medication: N/A Justification of Continued Inpatient Treatment: Continued therapeutic support and medication management needed to provide stabilization, and prevent decompensation decreasing risk to patient for readmittance to in-patient unit.
[2019-03-05] MEDS: lurasidone 20mg tablet PO SCH (18:03)
[2019-03-05] MEDS: hydrOXYzine 25 MG tablet PO PRN (18:03)
[2019-03-05 19:00] VITALS: BP 106/73
[2019-03-05] MEDS: prazosin 1mg capsule PO SCH (21:23)
[2019-03-05] MEDS: mirtazapine 15mg tablet PO SCH (21:24)
[2019-03-05] MEDS: traZODone 50mg tablet PO SCH (21:24)
[2019-03-05] MEDS: ALPRAZolam 0.5mg tablet PO SCH (21:24)
--- NOTE | 2019-03-06 01:12 | NUR ---
Nursing Progress Note: Legal hold: 5250 Client on involuntary status for being a danger to herself. Report received from nurse with use of SBAR: DELANEY Butts Why are they here: The patient self-presented to the ER after she drove herself here from [place], [place] because she had been feeling suicidal with a plan to overdose on her prescription meds as well as medications that belonged to her boyfriend. She also had been abusing alcohol. The patient was medically cleared in the ER and placed on a 5150 hold for being a danger to herself. Assessment What has happened this shift: Patient is in bed in her room at the change of shift. She is in bed reading a book. She is cooperative for a 1:1 assessment at her bedside. She remains in her room reading all shift. She keeps to herself and is not seen out of her room. She reports continued anxiety and depression. She is educated on her medication changes and verbalizes understanding. She is compliant with all her evening medications and turns to bed after receiving HS meds. S/I, H/I: Denies A/VH: Denies Sleep: Currently sleeping, see sleep assessment ADL's: Independent Group attendance: None this shift Were meds taken: Yes Any med S/E: None reported Mental Status Exam Appearance: WNL, well groomed Eye contact: Good Behavior: Keeps to herself, isolative to her room, spends her time reading in bed Speech: Normal volume, rate and rhythm Mood: Depressed, anxious Affect: Congruent to mood Thought process: Linear Thought Content: Depressed Cognition: Alert, oriented Insight: Fair Judgment: Fair Interventions PRN's used: none Restraints/seclusion/emergency medication: None Therapeutic interventions: 1:1 therapeutic assessment, maintained safe therapeutic milieu, encouraged independent ADLs, provided active listening with positive feedback, provided medication education as needed, monitored for change in behavior and needed intervention. Q 15 min safety checks. Justification of Continued Inpatient Treatment: The patient is reporting that her moods are unstable.
[2019-03-06 08:00] VITALS: BP 114/81
[2019-03-06] MEDS: venlafaxine XR 75mg capsule (Q24H) PO SCH (08:01)
[2019-03-06] MEDS: naltrexone 50mg tablet PO SCH (08:01)
--- NOTE | 2019-03-06 16:42 | NUR ---
Nursing Progress Note: Legal hold: 5250 DTS Report received from nurse with use of SBAR: DELANEY Posada Why are they here: The patient is a 48 year old female who self presented to [facility] ER from her home in [place]. She reported that she was suicidal with a plan to take an over dose of medications. She was seen by [facility] and placed on a 5150 for being a danger to herself. Assessment What has happened this shift: Patient is observed resting at change of shift. She sleeps right up until breakfast. She reports sleeping well last night and denies any issues this morning. Med increase and new medication is discussed with patient, medication education provided, patient denies any questions and verbalizes understanding. She takes her meds without issue. She attends breakfast and lunch in group room with others. She is quiet but social throughout the day, attends groups, walks halls, and sits in group room to play cards. She denies any needs. S/I, H/I: denies A/VH: none reported Sleep: 6.75hrs NOC, rested during the day ADL's: Independent Group attendance: yes Were meds taken: Yes Any med S/E: None reported, no IMs or tremors observed Mental Status Exam Appearance: clean, dressed appropriate, hair brushed Eye contact: direct Behavior: Cooperative and friendly Speech: Soft tone, normal rate and rhythm Mood: reports depression Affect: flat with brightening Thought process: linear Thought Content: no delusional thought content present Cognition: A&O X4 Insight: Fair to good Judgment: Fair to good Interventions PRN's used: none Therapeutic interventions: 1:1 therapeutic assessment, maintained safe therapeutic milieu, encouraged independent ADLs, provided active listening with positive feedback, provided medication education as needed, monitored for change in behavior and needed intervention. Q 15 min safety checks. Restraints/seclusion/emergency medication: N/A Justification of Continued Inpatient Treatment: Continued therapeutic support and medication management needed to provide stabilization, and prevent decompensation decreasing risk to patient for readmittance to in-patient unit.
[2019-03-06] MEDS: lurasidone 20mg tablet PO SCH (17:56)
[2019-03-06 19:00] VITALS: BP 127/86
[2019-03-06] MEDS: prazosin 1mg capsule PO SCH (20:32)
[2019-03-06] MEDS: mirtazapine 15mg tablet PO SCH (20:32)
[2019-03-06] MEDS: traZODone 50mg tablet PO SCH (20:32)
[2019-03-06] MEDS: ALPRAZolam 0.5mg tablet PO SCH (20:32)
--- NOTE | 2019-03-06 23:40 | NUR ---
Nursing Progress Note: Legal hold: 5250 Client on involuntary status for being a danger to herself. Report received from nurse with use of SBAR: DELANEY Butts Why are they here: The patient self-presented to the ER after she drove herself here from [place], [place] because she had been feeling suicidal with a plan to overdose on her prescription meds as well as medications that belonged to her boyfriend. She also had been abusing alcohol. The patient was medically cleared in the ER and placed on a 5150 hold for being a danger to herself. Assessment What has happened this shift: On shift change pt is seen sitting in the community room. She is pleasant on approach and smiles slightly. She returns to her room and lays down around 1930. Pt is cooperative with assessment. Pt denies any SI, AH/VH. She said her day "went well, I went to the groups." She states she doesn't like art groups very much, but "the talking ones are better." She reports she is sleeping well at night. She says she is still "a little depressed," and rates her depression at a 3/10. 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 Were meds taken: Yes Any med S/E: None reported, none observed Mental Status Exam Appearance: WNL, well groomed Eye contact: Good Behavior:isolates in room, sits in community room but does not engage with peers Speech: Normal volume, rate and rhythm Mood: depressed Affect: flat Thought process: Linear Thought Content: felt tires, not talkative Cognition: Alert, oriented Insight: Fair Judgment: Fair Interventions PRN's used: none Restraints/seclusion/emergency medication: None Therapeutic interventions: 1:1 therapeutic assessment, maintained safe therapeutic milieu, encouraged independent ADLs, provided active listening with positive feedback, provided medication education as needed, monitored for change in behavior and needed intervention. Q 15 min safety checks. Justification of Continued Inpatient Treatment: The patient is reporting that her moods are unstable, pt reports she is still feeling depressed.
[2019-03-07 07:53] VITALS: BP 117/81
[2019-03-07] MEDS: venlafaxine XR 75mg capsule (Q24H) PO SCH (08:38)
[2019-03-07] MEDS: naltrexone 50mg tablet PO SCH (08:38)
--- NOTE | 2019-03-07 17:04 | NUR ---
Nursing Progress Note: Legal hold: 5250 DTS Report received from nurse with use of SBAR: Karli Faustin RN Why are they here: The patient is a 48 year old female who self presented to [facility] ER from her home in [place]. She reported that she was suicidal with a plan to take an over dose of medications. She was seen by [facility] and placed on a 5150 for being a danger to herself. Assessment What has happened this shift: Patient is observed resting at change of shift. She is awoken prior to breakfast. She reports sleeping well last night and states that she did not feel anxious yesterday. She does not notice any s/e from her medications and is happy with the changes. Patient talked about her late and how he was sick for many years and in pain before his suicide 4years ago this month. They were for 21years. Patient states that it does hurt less now than it did before but it is still very hard on her. Patient does not attend afternoon group and is observed resting in her bed. She isolates in her room the beginning of the day. She does join others to watch the derby in the afternoon. She denies any needs at states that she is ok. S/I, H/I: denies A/VH: none reported Sleep: 9.5hrs NOC, rested during the day ADL's: Independent Group attendance: no Were meds taken: Yes Any med S/E: None reported, no IMs or tremors observed Mental Status Exam Appearance: clean, dressed appropriate, hair brushed Eye contact: direct Behavior: Cooperative and friendly Speech: Soft tone, normal rate and rhythm Mood: reports depression Affect: flat with brightening Thought process: linear Thought Content: no delusional thought content present Cognition: A&O X4 Insight: Fair to good Judgment: Fair to good Interventions PRN's used: none Therapeutic interventions: 1:1 therapeutic assessment, maintained safe therapeutic milieu, encouraged independent ADLs, provided active listening with positive feedback, provided medication education as needed, monitored for change in behavior and needed intervention. Q 15 min safety checks. Restraints/seclusion/emergency medication: N/A Justification of Continued Inpatient Treatment: Continued therapeutic support and medication management needed to provide stabilization, and prevent decompensation decreasing risk to patient for readmittance to in-patient unit.
[2019-03-07] MEDS: lurasidone 20mg tablet PO SCH (17:58)
[2019-03-07 19:00] VITALS: BP 120/78
[2019-03-07] MEDS: prazosin 1mg capsule PO SCH (21:04)
[2019-03-07] MEDS: ALPRAZolam 0.5mg tablet PO SCH (21:04)
[2019-03-07] MEDS: mirtazapine 15mg tablet PO SCH (21:04)
[2019-03-07] MEDS: traZODone 50mg tablet PO SCH (21:04)
--- NOTE | 2019-03-07 22:36 | NUR ---
Nursing Progress Note: Legal hold: 5250 Client on involuntary status for being a danger to herself. Report received from nurse with use of SBAR: DELANEY Butts Why are they here: The patient self-presented to the ER after she drove herself here from [place], [place] because she had been feeling suicidal with a plan to overdose on her prescription meds as well as medications that belonged to her boyfriend. She also had been abusing alcohol. The patient was medically cleared in the ER and placed on a 5150 hold for being a danger to herself. Assessment What has happened this shift: Pt isolates in her room reading a book or laying quietly. She is cooperative with assessment and denies any suicidal thoughts, AH or VH. She rates her depression at a 2/10. 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 Were meds taken: Yes Any med S/E: None reported, none observed Mental Status Exam Appearance: WNL, well groomed Eye contact: Good Behavior:isolates in room Speech: Normal volume, rate and rhythm Mood: depressed Affect: flat Thought process: Linear Thought Content: felt tires, not talkative Cognition: Alert, oriented Insight: Fair Judgment: Fair Interventions PRN's used: none Restraints/seclusion/emergency medication: None Therapeutic interventions: 1:1 therapeutic assessment, maintained safe therapeutic milieu, encouraged independent ADLs, provided active listening with positive feedback, provided medication education as needed, monitored for change in behavior and needed intervention. Q 15 min safety checks. Justification of Continued Inpatient Treatment: The patient is reporting that her moods are unstable, pt reports she is still feeling depressed.
[2019-03-08] MEDS: venlafaxine XR 75mg capsule (Q24H) PO SCH (07:59)
[2019-03-08] MEDS: naltrexone 50mg tablet PO SCH (07:59)
[2019-03-08 08:01] VITALS: BP 110/68
--- NOTE | 2019-03-08 12:23 | NUR ---
reassessment: Pt PO 100% regular meals meeting needs. LBM 03/07. No nutrition concerns at this time. Recommendations: 1) Continue regular diet 2) Weekly wt Addendum: 03/08/19 at [address] Amended: Links added.
--- NOTE | 2019-03-08 15:37 | NUR ---
Nursing Progress Note: Legal hold: 5250 DTS Report received from nurse with use of SBAR: DELANEY Quintero Why are they here: The patient is a 48 year old female who self presented to [facility] ER from her home in [place]. She reported that she was suicidal with a plan to take an over dose of medications. She was seen by [facility] and placed on a 5150 for being a danger to herself. Assessment What has happened this shift: Patient is observed resting at change of shift. She joins others in the group room for breakfast. Her demeanor is quiet, she states that she is doing well and slept well last night. She takes her medications without issue and denies any adverse effects. After breakfast she returns to her room and sleeps. Patients boyfriend comes to visit her her today and she states that they had a good visit. After the visit patient returns to her room and sleeps. Patient does not attend group, she stays in her room. S/I, H/I: denies A/VH: none reported Sleep: 8.75hrs NOC, rested during the day ADL's: Independent Group attendance: no Were meds taken: Yes Any med S/E: None reported, no IMs or tremors observed Mental Status Exam Appearance: clean, dressed appropriate, hair brushed Eye contact: direct Behavior: Cooperative and friendly Speech: Soft tone, normal rate and rhythm Mood: states she is feeling better, appears to be depressed Affect: flat with brightening Thought process: linear Thought Content: no delusional thought content present Cognition: A&O X4 Insight: Fair to good Judgment: Fair to good Interventions PRN's used: none Therapeutic interventions: 1:1 therapeutic assessment, maintained safe therapeutic milieu, encouraged independent ADLs, provided active listening with positive feedback, provided medication education as needed, monitored for change in behavior and needed intervention. Q 15 min safety checks. Restraints/seclusion/emergency medication: N/A Justification of Continued Inpatient Treatment: Continued therapeutic support and medication management needed to provide stabilization, and prevent decompensation decreasing risk to patient for readmittance to in-patient unit.
[2019-03-08] MEDS: lurasidone 20mg tablet PO SCH (18:03)
[2019-03-08 19:10] VITALS: BP 121/82
[2019-03-08] MEDS: ALPRAZolam 0.5mg tablet PO SCH (21:10)
[2019-03-08] MEDS: mirtazapine 15mg tablet PO SCH (21:11)
[2019-03-08] MEDS: prazosin 1mg capsule PO SCH (21:11)
[2019-03-08] MEDS: traZODone 50mg tablet PO SCH (21:11)
--- NOTE | 2019-03-09 00:12 | NUR ---
Nursing Progress Note: Legal hold: 5250 Client on involuntary status for being a danger to herself. Report received from nurse with use of SBAR: DELANEY Banda Why are they here: The patient self-presented to the ER after she drove herself here from [place], [place] because she had been feeling suicidal with a plan to overdose on her prescription meds as well as medications that belonged to her boyfriend. She also had been abusing alcohol. The patient was medically cleared in the ER and placed on a 5150 hold for being a danger to herself. Assessment What has happened this shift: Pt is cooperative with assessment. Pt denies any SI, AH/VH. She said her day went well because her boyfriend visited. She reports she is sleeping well at night. She says she is still "a little depressed," and rates her depression at a 4/10. 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 Were meds taken: Yes Any med S/E: None reported, none observed Mental Status Exam Appearance: WNL, well groomed Eye contact: Good Behavior:isolates in room, sits in community room but does not engage with peers Speech: Normal volume, rate and rhythm Mood: depressed Affect: flat Thought process: Linear Thought Content: felt tires, not talkative Cognition: Alert, oriented Insight: Fair Judgment: Fair Interventions PRN's used: none Restraints/seclusion/emergency medication: None Therapeutic interventions: 1:1 therapeutic assessment, maintained safe therapeutic milieu, encouraged independent ADLs, provided active listening with positive feedback, provided medication education as needed, monitored for change in behavior and needed intervention. Q 15 min safety checks. Justification of Continued Inpatient Treatment: The patient is reporting that her moods are unstable, pt reports she is still feeling depressed.
[2019-03-09 08:00] VITALS: BP 101/67
[2019-03-09] MEDS ORDERED: venlafaxine 37.5mg tablet PO SCH (08:00)
[2019-03-09] MEDS ORDERED: venlafaxine XR 37.5mg cap (Q24H) PO SCH (08:00)
[2019-03-09] MEDS: venlafaxine XR 75mg capsule (Q24H) PO SCH (08:19)
[2019-03-09] MEDS: naltrexone 50mg tablet PO SCH (08:19)
--- NOTE | 2019-03-09 14:42 | NUR ---
[place] Progress Note: Legal hold:5250 Client on voluntary/involuntary status for being a danger to herself Report received from nurse with use of SBAR: Isma Castro RN Why are they here: The patient self presented to the ER after she drove herself here from [place], [place] because she had been feeling suicidal with a plan to overdose on her prescription meds as well as medications that belonged to her boyfriend. She also had been abusing alcohol. The patient was medically cleared in the ER and placed on a 5150 hold for being a danger to herself. Assessment What has happened this shift:The patient was observed asleep in bed upon change of shift. Awakened for vital signs. Pleasant upon staff approach. Appeared appropriately dressed and well groomed for breakfast. Approached for the daily assessment when in her room in her bed. When asked about her mood she replied "I wanted to give up. This happens the same time every year. Do you remember? I was here right about this time last year. My mind goes dark and I can't see my way out." Speaks in a monotone voice. Facial expression blank though provides eye contact when she speaks. Added "My boyfriend drinks and there are always people at my house. It's hard not to drink when it's right around you." Patient has a long history of drinking, often to excess. She has also suffered, per history, of depression related to the early of her . She denies being suicidal "as long as I'm here. I feel safe here. I'm not ready to go home." She denied having thoughts to harm others. She denies any kind of psychotic symptoms and none were evident during the assessment. S/I, H/I:Denies A/VH: Denies Sleep: complains of nightmares ADL's: Independent last shower 03/02 Group attendance: No PM group held Were meds taken: The patient is medication compliant Any med S/E: The patient denies medication side effects Mental Status Exam Appearance: Appears stated age, adequately groomed Eye contact: good Behavior: mildly withdrawn, quiet, pleasant, cooperative Speech: Spontaneous, linear, logical Mood: Depressed, anxious Affect: WNL Thought process: Alert, logical, goal oriented Thought Content: depressed. Talked about having nightmares and is aware of medication adjustments Cognition: Alert, oriented Insight: impaired Judgment: Impaired Interventions PRN's used: none Therapeutic interventions: One to one with the patient to assess severity of depressive symptoms and self harm risk. Educated to current medications. The patient remains on q 15 minute safety checks Restraints/seclusion/emergency medication: None Justification of Continued Inpatient Treatment: The patient is reporting that her moods are unstable.
[2019-03-09] MEDS: lurasidone 20mg tablet PO SCH (18:26)
[2019-03-09 20:00] VITALS: BP 124/86
[2019-03-09] MEDS: mirtazapine 15mg tablet PO SCH (21:30)
[2019-03-09] MEDS: ALPRAZolam 0.5mg tablet PO SCH (21:30)
[2019-03-09] MEDS: traZODone 50mg tablet PO SCH (21:30)
[2019-03-09] MEDS: prazosin 1mg capsule PO SCH (21:30)
--- NOTE | 2019-03-09 22:20 | NUR ---
Nursing Progress Note: Legal hold: 5250 Client on involuntary status for being a danger to herself. Report received from nurse with use of SBAR: DELANEY Butts Why are they here: The patient self-presented to the ER after she drove herself here from [place], [place] because she had been feeling suicidal with a plan to overdose on her prescription meds as well as medications that belonged to her boyfriend. She also had been abusing alcohol. The patient was medically cleared in the ER and placed on a 5150 hold for being a danger to herself. Assessment What has happened this shift: Pt walks the unit for a few minutes at the beginning of shift, she does not engage with anyone on conversation but smiles occasionally. Pt later isolates in her room reading a book or laying quietly. She is cooperative with assessment and denies any suicidal thoughts, AH or VH. She rates her depression at a 2/10. 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 Were meds taken: Yes Any med S/E: None reported, none observed Mental Status Exam Appearance: WNL, well groomed, hair brushed Eye contact: Good Behavior:isolates in room reading a book Speech: Normal volume, rate and rhythm Mood: depressed Affect: flat Thought process: Linear Thought Content: WNL Cognition: Alert, oriented Insight: Fair Judgment: Fair Interventions PRN's used: none Restraints/seclusion/emergency medication: None Therapeutic interventions: 1:1 therapeutic assessment, maintained safe therapeutic milieu, encouraged independent ADLs, provided active listening with positive feedback, provided medication education as needed, monitored for change in behavior and needed intervention. Q 15 min safety checks. Justification of Continued Inpatient Treatment: The patient is reporting that her moods are unstable, pt reports she is still feeling depressed.
[2019-03-10 07:16] VITALS: BP 92/62
[2019-03-10] MEDS: buPROPion 75mg tablet PO SCH (08:57)
[2019-03-10] MEDS: venlafaxine XR 75mg capsule (Q24H) PO SCH (08:57)
[2019-03-10] MEDS: naltrexone 50mg tablet PO SCH (08:58)
--- NOTE | 2019-03-10 15:31 | NUR ---
Legal hold:5250 Client on voluntary/involuntary status for being a danger to herself Report received from nurse with use of SBAR: Isma Castro RN Why are they here: The patient self presented to the ER after she drove herself here from [place], [place] because she had been feeling suicidal with a plan to overdose on her prescription meds as well as medications that belonged to her boyfriend. She also had been abusing alcohol. The patient was medically cleared in the ER and placed on a 5150 hold for being a danger to herself. Assessment What has happened this shift:The patient was observed asleep in bed upon change of shift. Awakened for vital signs. Pleasant upon staff approach. Appeared appropriately dressed and well groomed for breakfast. Approached for the daily assessment. Sat with patient in the quiet room for discussion. Speaks in a monotone voice. Facial expression blank though provides eye contact when she speaks. Asked how she was feeling today. Patient stated "I'm the same. It's the depression. It's really bad. That's the problem more than the drinking. When I'm home all I do is stay in bed. I don't bathe, I don't clean my house. Do you understand what I'm saying? I'm that depressed." Patient informed Dr. Daly added Wellbutrin to her antidepressant regimen. Patient responded "Antidepressants work in the beginning. But then they stop working. Nothing really works for long." She denies being suicidal "as long as I'm here. I feel safe here. I'm not ready to go home." She denied having thoughts to harm others. She denies any kind of psychotic symptoms and none were evident during the assessment. S/I, H/I:Denies A/VH: Denies Sleep: Lays in her bed when not up for meals or group ADL's: Independent Group attendance: Attended group today Were meds taken: The patient is medication compliant Any med S/E: The patient denies medication side effects Mental Status Exam Appearance: Appears stated age, adequately groomed Eye contact: good Behavior: mildly withdrawn, quiet, pleasant, cooperative Speech: Spontaneous, linear, logical Mood: Depressed, anxious Affect: WNL Thought process: Alert, logical, goal oriented Thought Content: depressed. Talked about having nightmares and is aware of medication adjustments Cognition: Alert, oriented Insight: impaired Judgment: Impaired Interventions PRN's used: none Therapeutic interventions: One to one with the patient to assess severity of depressive symptoms and self harm risk. Educated to current medications. The patient remains on q 15 minute safety checks Restraints/seclusion/emergency medication: None Justification of Continued Inpatient Treatment: The patient is reporting that her moods are unstable.
[2019-03-10] MEDS: lurasidone 20mg tablet PO SCH (18:09)
[2019-03-10] MEDS: ALPRAZolam 0.5mg tablet PO SCH (20:07)
[2019-03-10 20:08] VITALS: BP 115/84
[2019-03-10] MEDS: mirtazapine 15mg tablet PO SCH (20:08)
[2019-03-10] MEDS: prazosin 1mg capsule PO SCH (20:11)
[2019-03-10] MEDS: traZODone 50mg tablet PO SCH (20:13)
--- NOTE | 2019-03-10 22:28 | NUR ---
Nursing Progress Note: Legal hold: 5250 Client on involuntary status for being a danger to herself. Report received from nurse with use of SBAR: DELANEY Butts Why are they here: The patient self-presented to the ER after she drove herself here from [place], [place] because she had been feeling suicidal with a plan to overdose on her prescription meds as well as medications that belonged to her boyfriend. She also had been abusing alcohol. The patient was medically cleared in the ER and placed on a 5150 hold for being a danger to herself. Assessment What has happened this shift: On shift change pt is seen sitting in the community room. She is pleasant on approach and smiles slightly. Pt is cooperative with assessment. Pt denies any SI, AH/VH. She said her day "went well, I went to the groups. She reports she is sleeping well at night. 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 Were meds taken: Yes Any med S/E: None reported, none observed Mental Status Exam Appearance: WNL, well groomed Eye contact: Good Behavior:isolates in room, sits in community room but does not engage with peers Speech: Normal volume, rate and rhythm Mood: depressed Affect: flat Thought process: Linear Thought Content: felt tires, not talkative Cognition: Alert, oriented Insight: Fair Judgment: Fair Interventions PRN's used: none Restraints/seclusion/emergency medication: None Therapeutic interventions: 1:1 therapeutic assessment, maintained safe therapeutic milieu, encouraged independent ADLs, provided active listening with positive feedback, provided medication education as needed, monitored for change in behavior and needed intervention. Q 15 min safety checks. Justification of Continued Inpatient Treatment: The patient is reporting that her moods are unstable, pt reports she is still feeling depressed.
[2019-03-11 08:00] VITALS: BP 105/67
[2019-03-11] MEDS: buPROPion 75mg tablet PO SCH (08:57)
[2019-03-11] MEDS: venlafaxine XR 75mg capsule (Q24H) PO SCH (08:57)
[2019-03-11] MEDS: naltrexone 50mg tablet PO SCH (08:57)
--- NOTE | 2019-03-11 16:16 | NUR ---
NURSING PROGRESS NOTE Legal hold: 5250 Client on involuntary status for DTS Report received from nurse Swetha RN with use of SBAR Why are they here: The patient self presented to the ER after she drove herself here from [place], [place] because she had been feeling suicidal with a plan to overdose on her prescription meds as well as medications that belonged to her boyfriend. She also had been abusing alcohol. The patient was medically cleared in the ER and placed on a 5150 hold for DTS. Assessment What has happened this shift: Pt sleeping at start of shift. Pt endorses depression and isolated most of the day. She attended AM group then remained in her room the rest of the day reading a book. She is unsure if she would be safe going home. S/I, H/I: States she is unsure if she went home if she would be safe or not. A/VH: Denies Sleep: Lays in her bed when not up for meals or group ADL's: Independent Group attendance: Attended AM only Were meds taken: The patient is medication compliant Any med S/E: The patient denies medication side effects Mental Status Exam Appearance: Appears stated age, adequately groomed Eye contact: fair Behavior: mildly withdrawn, quiet, pleasant, cooperative Speech: Spontaneous, linear, logical Mood: Depressed, anxious Affect: WNL Thought process: Alert, logical, goal oriented Thought Content: unknown Cognition: Alert, oriented Insight: impaired Judgment: Impaired Interventions PRN's used: none Therapeutic interventions: Provided therapeutic communication and active listening,
[2019-03-11] MEDS: lurasidone 20mg tablet PO SCH (17:47)
[2019-03-11 20:13] VITALS: BP 111/78
[2019-03-11] MEDS: ALPRAZolam 0.5mg tablet PO SCH (21:27)
[2019-03-11] MEDS: mirtazapine 15mg tablet PO SCH (21:27)
[2019-03-11] MEDS: prazosin 1mg capsule PO SCH (21:27)
[2019-03-11] MEDS: traZODone 50mg tablet PO SCH (21:27)
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
[2019-03-12 08:14] VITALS: BP 91/58
[2019-03-12] MEDS: venlafaxine XR 75mg capsule (Q24H) PO SCH (08:36)
[2019-03-12] MEDS: naltrexone 50mg tablet PO SCH (08:37)
[2019-03-12] MEDS: buPROPion 75mg tablet PO SCH (08:38)
[2019-03-12] MEDS ORDERED: buPROPion 75mg tablet PO ONE (13:00)
--- NOTE | 2019-03-12 16:03 | NUR ---
NURSING PROGRESS NOTE Legal hold: 5250 Client on involuntary status for DTS Report received from nurse Swetha RN with use of SBAR Why are they here: The patient self presented to the ER after she drove herself here from [place], [place] because she had been feeling suicidal with a plan to overdose on her prescription meds as well as medications that belonged to her boyfriend. She also had been abusing alcohol. The patient was medically cleared in the ER and placed on a 5150 hold for DTS. Assessment What has happened this shift: Pt sleeping at beginning of shift and up for breakfast. Pt states she is feeling a little better with some depression but denies suicidal ideation. Patient attended groups today. Patient states she lives with her boyfriend who drinks a couple of beers a night. Patient will also drink but can't seem to stop. Patient's boyfriend does not want to quit because patient states he works hard and it's how he unwinds at the end of the day. Patient states her boyfriend is supportive and also her children. RN suggested possible outpatient addiction therapy. Patient states she never thought of that. Patient states she will speak to her social media director about possibly doing this therapy. S/I, H/I: Denies A/VH: Denies Sleep: Lays in her bed when not up for meals or group ADL's: Independent Group attendance: Attended AM only Were meds taken: The patient is medication compliant Any med S/E: The patient denies medication side effects Mental Status Exam Appearance: Appears stated age, adequately groomed Eye contact: fair Behavior: mildly withdrawn, quiet, pleasant, cooperative Speech: Spontaneous, linear, logical Mood: Depressed, anxious Affect: WNL Thought process: Alert, logical, goal oriented Thought Content: unknown Cognition: Alert, oriented Insight: fair Judgment: fair Interventions PRN's used: none Therapeutic interventions: Provided therapeutic communication and active listening,
[2019-03-12] MEDS: lurasidone 20mg tablet PO SCH (18:04)
[2019-03-12 19:00] VITALS: BP 103/68
[2019-03-12] MEDS: prazosin 1mg capsule PO SCH ×2 (21:00→21:43)
[2019-03-12] MEDS: traZODone 50mg tablet PO SCH (21:42)
[2019-03-12] MEDS: ALPRAZolam 0.5mg tablet PO SCH (21:43)
[2019-03-12] MEDS: mirtazapine 15mg tablet PO SCH (21:43)
[2019-03-12 21:46] VITALS: BP 100/55
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
[2019-03-13 07:47] VITALS: BP 95/67
[2019-03-13] MEDS: buPROPion 75mg tablet PO SCH ×2 (08:29→13:07)
[2019-03-13] MEDS: thiamine 100mg tablet PO SCH (08:29)
[2019-03-13] MEDS: folic acid 1mg tablet PO SCH (08:29)
[2019-03-13] MEDS: naltrexone 50mg tablet PO SCH (08:29)
[2019-03-13] MEDS: venlafaxine XR 75mg capsule (Q24H) PO SCH (08:29)
--- NOTE | 2019-03-13 14:45 | NUR ---
NURSING PROGRESS NOTE Legal hold: 5250 Client on involuntary status for DTS Report received from nurse Swetha RN with use of SBAR Why are they here: The patient self presented to the ER after she drove herself here from [place], [place] because she had been feeling suicidal with a plan to overdose on her prescription meds as well as medications that belonged to her boyfriend. She also had been abusing alcohol. The patient was medically cleared in the ER and placed on a 5150 hold for DTS. Patient states she lives with her boyfriend who drinks a couple of beers a night. Patient will also drink but can't seem to stop. Patient's boyfriend does not want to quit because patient states he works hard and it's how he unwinds at the end of the day. Assessment What has happened this shift: Pt sleeping at beginning of shift and up for breakfast. Pt states she is feeling a little better with some depression but denies suicidal ideation. Patient attended groups but does not participate. Patient states she will speak to her high school social studies tutor about possibly doing rehab therapy for ETOH abuse. Patient is cooperative and polite. Patient spends time watching TV or in her room but is not very social. Patient states she doesn't usually talk to people about her problems or feelings. Patient denies SI/HI but is depressed. S/I, H/I: Denies A/VH: Denies Sleep: Often lays in bed during the day. ADL's: Independent Group attendance: both groups Were meds taken: The patient is medication compliant Any med S/E: The patient denies medication side effects Mental Status Exam Appearance: Appears stated age, adequately groomed Eye contact: fair Behavior: mildly withdrawn, quiet, pleasant, cooperative Speech: Spontaneous, linear, logical Mood: Depressed, anxious
[2019-03-13] MEDS: lurasidone 20mg tablet PO SCH (18:19)
[2019-03-13 21:00] VITALS: BP 120/80
[2019-03-13] MEDS: prazosin 1mg capsule PO SCH (21:03)
[2019-03-13] MEDS: mirtazapine 15mg tablet PO SCH (21:03)
[2019-03-13] MEDS: ALPRAZolam 0.5mg tablet PO SCH (21:03)
[2019-03-13] MEDS: traZODone 50mg tablet PO SCH (21:03)
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
[2019-03-14 07:30] VITALS: BP 102/67
[2019-03-14] MEDS: venlafaxine XR 75mg capsule (Q24H) PO SCH (08:06)
[2019-03-14] MEDS: buPROPion 75mg tablet PO SCH ×2 (08:06→12:26)
[2019-03-14] MEDS: naltrexone 50mg tablet PO SCH (08:07)
[2019-03-14] MEDS: folic acid 1mg tablet PO SCH (08:07)
[2019-03-14] MEDS: thiamine 100mg tablet PO SCH (08:07)
--- NOTE | 2019-03-14 10:10 | NUR ---
Reassessment: Documented 100% PO intake on regular diet meeting nutrient needs. Wt stable since admit. [facility] 03/13. No nutrition diagnosis at this time. Will continue to follow. Recommendations: 1) Continue regular diet 2) Weekly wt Addendum: 03/14/19 at [address] Amended: Links added.
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
[2019-03-14] MEDS: lurasidone 20mg tablet PO SCH (18:09)
[2019-03-14 18:30] VITALS: BP 112/80
[2019-03-14] MEDS: prazosin 1mg capsule PO SCH (21:16)
[2019-03-14] MEDS: mirtazapine 15mg tablet PO SCH (21:16)
[2019-03-14] MEDS: ALPRAZolam 0.5mg tablet PO SCH (21:16)
[2019-03-14] MEDS: traZODone 50mg tablet PO SCH (21:16)
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
[2019-03-15] MEDS: thiamine 100mg tablet PO SCH (07:54)
[2019-03-15] MEDS: venlafaxine XR 75mg capsule (Q24H) PO SCH (07:54)
[2019-03-15] MEDS: folic acid 1mg tablet PO SCH (07:54)
[2019-03-15] MEDS: buPROPion 75mg tablet PO SCH (07:54)
[2019-03-15] MEDS: naltrexone 50mg tablet PO SCH (07:54)
[2019-03-15 08:00] VITALS: BP 105/60
[2019-03-15] MEDS: buPROPion 100mg tablet PO SCH (12:35)
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
[2019-03-15] MEDS: lurasidone 20mg tablet PO SCH (18:25)
[2019-03-15 19:20] VITALS: BP 124/84
[2019-03-15] MEDS: mirtazapine 15mg tablet PO SCH (20:33)
[2019-03-15] MEDS: ALPRAZolam 0.5mg tablet PO SCH (20:33)
[2019-03-15] MEDS: traZODone 50mg tablet PO SCH (20:33)
[2019-03-15] MEDS: prazosin 1mg capsule PO SCH (20:33)
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
[2019-03-16] MEDS: buPROPion 100mg tablet PO SCH ×2 (07:05→12:47)
[2019-03-16 07:40] VITALS: BP 95/63
[2019-03-16] MEDS: naltrexone 50mg tablet PO SCH (08:42)
[2019-03-16] MEDS: venlafaxine XR 75mg capsule (Q24H) PO SCH (08:42)
[2019-03-16] MEDS: thiamine 100mg tablet PO SCH (08:42)
[2019-03-16] MEDS: folic acid 1mg tablet PO SCH (08:43)
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
[2019-03-16] MEDS: lurasidone 20mg tablet PO SCH (17:40)
[2019-03-16 20:12] VITALS: BP 109/77
[2019-03-16] MEDS: prazosin 1mg capsule PO SCH (20:22)
[2019-03-16] MEDS: mirtazapine 15mg tablet PO SCH (20:23)
[2019-03-16] MEDS: traZODone 50mg tablet PO SCH (20:23)
[2019-03-16] MEDS: ALPRAZolam 0.5mg tablet PO SCH (20:23)
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
[2019-03-17 07:30] VITALS: BP 111/74
[2019-03-17] MEDS: naltrexone 50mg tablet PO SCH (08:09)
[2019-03-17] MEDS: venlafaxine XR 75mg capsule (Q24H) PO SCH (08:09)
[2019-03-17] MEDS: folic acid 1mg tablet PO SCH (08:09)
[2019-03-17] MEDS: thiamine 100mg tablet PO SCH (08:09)
[2019-03-17] MEDS: buPROPion 100mg tablet PO SCH ×2 (08:09→12:45)
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
[2019-03-17] MEDS: lurasidone 20mg tablet PO SCH (17:44)
[2019-03-17 20:25] VITALS: BP 92/64
[2019-03-17 21:35] VITALS: BP 110/70
[2019-03-17] MEDS: mirtazapine 15mg tablet PO SCH (21:38)
[2019-03-17] MEDS: traZODone 50mg tablet PO SCH (21:38)
[2019-03-17] MEDS: ALPRAZolam 0.5mg tablet PO SCH (21:38)
[2019-03-17] MEDS: prazosin 1mg capsule PO SCH (21:40)
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
[2019-03-18] MEDS: venlafaxine XR 75mg capsule (Q24H) PO SCH (07:38)
[2019-03-18] MEDS: buPROPion 100mg tablet PO SCH ×2 (07:38→12:49)
[2019-03-18] MEDS: thiamine 100mg tablet PO SCH (07:38)
[2019-03-18] MEDS: folic acid 1mg tablet PO SCH (07:38)
[2019-03-18 07:39] VITALS: BP 99/61
[2019-03-18] MEDS: naltrexone 50mg tablet PO SCH (07:46)
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
[2019-03-18] MEDS: lurasidone 20mg tablet PO SCH (18:09)
[2019-03-18 20:38] VITALS: BP 118/80
[2019-03-18] MEDS: traZODone 50mg tablet PO SCH (20:58)
[2019-03-18] MEDS: ALPRAZolam 0.5mg tablet PO SCH (20:58)
[2019-03-18] MEDS: mirtazapine 15mg tablet PO SCH (20:58)
[2019-03-18] MEDS: prazosin 1mg capsule PO SCH (20:58)
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
[2019-03-19] MEDS: thiamine 100mg tablet PO SCH (07:57)
[2019-03-19] MEDS: venlafaxine XR 75mg capsule (Q24H) PO SCH (07:57)
[2019-03-19] MEDS: folic acid 1mg tablet PO SCH (07:58)
[2019-03-19] MEDS: naltrexone 50mg tablet PO SCH (07:58)
[2019-03-19] MEDS: buPROPion 100mg tablet PO SCH ×2 (07:58→12:43)
[2019-03-19 08:00] VITALS: BP 98/65
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
[2019-03-19] MEDS: lurasidone 20mg tablet PO SCH (17:43)
[2019-03-19 19:00] VITALS: BP 107/78
[2019-03-19 21:00] VITALS: BP 110/65
[2019-03-19] MEDS: mirtazapine 15mg tablet PO SCH (21:10)
[2019-03-19] MEDS: traZODone 50mg tablet PO SCH (21:10)
[2019-03-19] MEDS: prazosin 1mg capsule PO SCH (21:10)
[2019-03-19] MEDS: ALPRAZolam 0.5mg tablet PO SCH (21:11)
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
[2019-03-20] MEDS: naltrexone 50mg tablet PO SCH (07:55)
[2019-03-20] MEDS: buPROPion 100mg tablet PO SCH ×2 (07:55→12:30)
[2019-03-20] MEDS: thiamine 100mg tablet PO SCH (07:55)
[2019-03-20] MEDS: venlafaxine XR 75mg capsule (Q24H) PO SCH (07:55)
[2019-03-20] MEDS: folic acid 1mg tablet PO SCH (07:55)
[2019-03-20 08:00] VITALS: BP 107/77
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
[2019-03-20] MEDS ORDERED: LURA20TA PO (13:27)
[2019-03-20] MEDS ORDERED: NALT50TA PO (13:27)
[2019-03-20] MEDS ORDERED: BUPR100T16 PO (13:27)
[2019-03-20] MEDS ORDERED: VENL75CA61 PO (13:27)
[2019-03-20] MEDS ORDERED: MIRT15TA8 PO (13:27)
[2019-03-20] MEDS ORDERED: HYDR-3686 PO (13:27)
[2019-03-20] MEDS ORDERED: TRAZ-251 PO (13:27)
[2019-03-20] MEDS ORDERED: ALPR0.5T9 PO (13:27)
[2019-03-20] MEDS ORDERED: PRAZ1CAP5 PO (13:27)
--- NOTE | 2019-03-20 14:08 | NUR ---
DISCHARGE NOTE: Pt discharged home, picked up by friend who will give her a ride back to [place]. Discharge instructions, medications, and follow up care reviewed, pt expressed understanding. Rx's sent with pt to take to the pharmacy of her choice, all belongings returned. Addendum: 03/20/19 at 1507 by Leesa Camilo" Woodman BALTAZAR Pt ambulated off the unit and out of hospital accompanied by PCT.
[2019-03-20] MEDS ORDERED: lurasidone 20mg tablet PO SCH (18:00)
== END 2019-03-20 14:08 | disposition home or self-care (01) | DRG 885 ==
LOC: ADULT MH 19:51
PROVIDERS: ADMIT Psychiatry & Neurology Psychiatry; ATTEND Psychiatry & Neurology Psychiatry
DX: F33.2 Major depressive disorder, recurrent severe without psychotic features (principal); R45.851 Suicidal ideations; D69.6 Thrombocytopenia, unspecified; F40.10 Social phobia, unspecified; F10.20 Alcohol dependence, uncomplicated; F43.12 Post-traumatic stress disorder, chronic; E87.6 Hypokalemia; Z79.899 Other long term (current) drug therapy; Z81.8 Family history of other mental and behavioral disorders; Z98.51 Tubal ligation status; Z82.49 Family history of ischemic heart disease and other diseases of the circulatory system; Z90.49 Acquired absence of other specified parts of digestive tract; Z71.41 Alcohol abuse counseling and surveillance of alcoholic
CPT/HCPCS: 36415; 80053; 80061; 83036; 85025; 87070; Q0177